=== PATIENT | female | born 1935 | race Caucasian/White ===

== ENCOUNTER → 2022-02-02 | Outpatient (REF) | payer MEDICARE, SELFPAY ==
[2022-02-02 11:05] LABS: Hematocrit 37.6 % (37-47); Hemoglobin 12.3 g/dL (12.0-15.0); Mean Corp Hgb Conc 32.7 g/dL (32-36); Mean Corpuscular Hgb 28.9 pg (27.0-32.0); Mean Corpuscular Volume 88.3 fL (81-99); Mean Platelet Vol. 9.8 fl (6.2-12.0); Platelet Count 324 K/mm3 (150-450); RBC Distribution Width CV 14.1 % (11.6-14.6); RBC Distribution Width SD 45.2 fl (35.1-43.9); Red Blood Count 4.26 M/mm3 (4.2-5.4); White Blood Count 7.9 K/mm3 (4.4-11.0)
[2022-02-02 11:18] LABS: Anion Gap 9 (5-15); BUN 15 mg/dL (7-18); BUN/Creat Ratio 20.4 RATIO (10-20); Calcium,Total 9.3 mg/dL (8.5-10.1); Chloride 104 mmol/L (98-107); Creatinine, Serum 0.74 mg/dL (0.55-1.02); EST Glomerular Filtration Rate 80 mL/min (>60); Est Glom Filt Rate - Afr Amer 96 mL/min (>60); Glucose 91 mg/dL (74-106); Potassium 3.7 mmol/L (3.5-5.1); Sodium Level 140 mmol/L (136-145)
== END | disposition home or self-care (01) ==
LOC: OLS.WHLTSB 07:40
PROVIDERS: Visit Provider Family Medicine
DX: I10 Essential (primary) hypertension (principal); E78.5 Hyperlipidemia, unspecified; F41.9 Anxiety disorder, unspecified; G47.09 Other insomnia; K21.9 Gastro-esophageal reflux disease without esophagitis; K59.00 Constipation, unspecified
CPT/HCPCS: 36415; 80048; 85027

== ENCOUNTER → 2022-03-14 | Outpatient (REF) | payer MEDICARE, SELFPAY ==
[2022-03-14 07:43] LABS: Absolute Lymphocyte Count 2.15 X10^3/uL (0.83-4.51); Absolute Neutrophil Count 10.5 X10^3/uL (2.0-7.7); Basophil# 0.02 X10^3/uL; Basophil% 0.1 % (0-1); Eosinophil# 0.02 X10^3/uL; Eosinophils% 0.1 % (0-5); Hematocrit 37.8 % (37-47); Hemoglobin 12.3 g/dL (12.0-15.0); Lymphocyte # 2.15 X10^3/ul (0.83-4.51); Lymphocyte % 15.4 % (19-41); Mean Corp Hgb Conc 32.5 g/dL (32-36); Mean Corpuscular Hgb 29.1 pg (27.0-32.0); Mean Corpuscular Volume 89.4 fL (81-99); Mean Platelet Vol. 9.6 fl (6.2-12.0); Monocyte# 1.22 X10^3/uL; Monocyte% 8.7 % (0-10); NRBC Flagged by Analyzer 0 % (0-5); Neutrophil # 10.48 X10^3/uL (2.7-7.7); Neutrophil % 75.1 % (47-70); Platelet Count 399 K/mm3 (150-450); RBC Distribution Width CV 14.7 % (11.6-14.6); RBC Distribution Width SD 47.5 fl (35.1-43.9); Red Blood Count 4.23 M/mm3 (4.2-5.4)
[2022-03-14 07:55] LABS: ALB/GLOB Ratio 0.7 RATIO (0.9-2.4); AST(SGOT) 45 U/L (15-37); Alanine Aminotransfer ALT/SGPT 49 U/L (13-56); Albumin, Serum 3.1 g/dL (3.2-5.0); Alkaline Phosphatase 117 U/L (45-117); Anion Gap 10 (5-15); BUN 24 mg/dL (7-18); BUN/Creat Ratio 38.2 RATIO (10-20); Calcium,Total 9.1 mg/dL (8.5-10.1); Chloride 103 mmol/L (98-107); Creatinine, Serum 0.63 mg/dL (0.55-1.02); EST Glomerular Filtration Rate 96 mL/min (>60); Est Glom Filt Rate - Afr Amer 116 mL/min (>60); Globulin 4.2 g/dL (2.2-4.2); Glucose 97 mg/dL (74-106); Potassium 2.9 mmol/L (3.5-5.1); Protein, Total 7.3 g/dL (6.4-8.2); Sodium Level 142 mmol/L (136-145)
== END | disposition home or self-care (01) ==
LOC: OLS.WHLTSB 05:00
PROVIDERS: Visit Provider Family Medicine
DX: M54.50 Low back pain, unspecified (principal)
CPT/HCPCS: 36415; 80053; 85025; 86140

== ENCOUNTER → 2022-03-15 | Outpatient (REF) | payer MEDICARE, SELFPAY ==
[2022-03-15 09:39] LABS: Anion Gap 4 (5-15); BUN 32 mg/dL (7-18); BUN/Creat Ratio 47.3 RATIO (10-20); Calcium,Total 9.2 mg/dL (8.5-10.1); Chloride 107 mmol/L (98-107); Creatinine, Serum 0.68 mg/dL (0.55-1.02); EST Glomerular Filtration Rate 88 mL/min (>60); Est Glom Filt Rate - Afr Amer 106 mL/min (>60); Glucose 99 mg/dL (74-106); Potassium 3.4 mmol/L (3.5-5.1); Sodium Level 141 mmol/L (136-145)
== END | disposition home or self-care (01) ==
LOC: OLS.WHLTSB 06:40
PROVIDERS: Visit Provider Family Medicine
DX: E87.6 Hypokalemia (principal); M54.50 Low back pain, unspecified; E78.5 Hyperlipidemia, unspecified; F41.9 Anxiety disorder, unspecified; G47.09 Other insomnia; Z86.16 Personal history of COVID-19; Z74.1 Need for assistance with personal care
CPT/HCPCS: 36415; 80048

== ENCOUNTER → 2022-03-22 | Outpatient (REF) | payer MEDICARE, OTHER, SELFPAY ==
[2022-03-22 09:44] LABS: Anion Gap 11 (5-15); BUN 12 mg/dL (7-18); BUN/Creat Ratio 16.1 RATIO (10-20); Calcium,Total 9.5 mg/dL (8.5-10.1); Chloride 104 mmol/L (98-107); Creatinine, Serum 0.75 mg/dL (0.55-1.02); EST Glomerular Filtration Rate 79 mL/min (>60); Est Glom Filt Rate - Afr Amer 95 mL/min (>60); Glucose 98 mg/dL (74-106); Potassium 3.6 mmol/L (3.5-5.1); Sodium Level 140 mmol/L (136-145)
== END | disposition home or self-care (01) ==
LOC: OLS.WHLTSB 07:20
PROVIDERS: Visit Provider Family Medicine
DX: M54.50 Low back pain, unspecified (principal); E87.6 Hypokalemia; F41.9 Anxiety disorder, unspecified; G47.09 Other insomnia; Z74.1 Need for assistance with personal care; Z86.16 Personal history of COVID-19
CPT/HCPCS: 36415; 80048

== ENCOUNTER 2022-04-06 14:30 | Inpatient (IN) | payer MEDICARE, OTHER, SELFPAY ==
[2022-04-06] VITALS (7 sets, daily range): BP systolic 109–134; BP diastolic 65–79; PULSE 87–98; RESP 14–18; TEMP 36.7–36.9; O2SAT 89–97; BMI 21.9; BMI 20.9
--- NOTE | 2022-04-06 14:38 | EKG12_ITS ---
Test Reason : Blood Pressure : / mmHG Vent. Rate : 085 BPM Atrial Rate : 085 BPM P-R Int : 150 ms QRS Dur : 072 ms QT Int : 366 ms P-R-T Axes : 040 032 060 degrees QTc Int : 435 ms Normal sinus rhythm Normal ECG Confirmed by RHINA FRANCIS, LAMINE ([id number]), editor book DEE MCDONALD ([id number]) on 04/07/2022 1:22:40 PM Referred By: Naren Confirmed By:LAMINE LANTIGUA MD
[2022-04-06] MEDS: Ondansetron 4 MG/2 ML Vial IV (14:45)
[2022-04-06] MEDS: Morphine 2 MG/ML Syringe IV (14:45)
[2022-04-06 14:51] LABS: Absolute Lymphocyte Count 1.04 X10^3/uL (0.83-4.51); Absolute Neutrophil Count 8.8 X10^3/uL (2.0-7.7); Basophil# 0.01 X10^3/uL; Basophil% 0.1 % (0-1); Eosinophils% 0.9 % (0-5); Hematocrit 31.6 % (37-47); Hemoglobin 10.3 g/dL (12.0-15.0); Lymphocyte # 1.04 X10^3/ul (0.83-4.51); Lymphocyte % 9.6 % (19-41); Mean Corp Hgb Conc 32.6 g/dL (32-36); Mean Corpuscular Hgb 29.6 pg (27.0-32.0); Mean Corpuscular Volume 90.8 fL (81-99); Mean Platelet Vol. 8.9 fl (6.2-12.0); Monocyte# 0.75 X10^3/uL; Monocyte% 6.9 % (0-10); NRBC Flagged by Analyzer 0 % (0-5); Neutrophil # 8.83 X10^3/uL (2.7-7.7); Neutrophil % 81.9 % (47-70); Platelet Count 361 K/mm3 (150-450); RBC Distribution Width CV 15.8 % (11.6-14.6); Red Blood Count 3.48 M/mm3 (4.2-5.4); White Blood Count 10.8 K/mm3 (4.4-11.0)
[2022-04-06 14:58] LABS: Prothrombin Time (Protime)PT. 13.1 SECONDS (11.7-14.9)
--- NOTE | 2022-04-06 14:58 | RAD_ITS ---
INDICATION: preop EXAMINATION/TECHNIQUE: X-RAY - XR Chest 1 View COMPARISON: None. FINDINGS: LINES/DEVICES: None. LUNGS: Peribronchial cuffing and bilateral perihilar prominence is visualized but no evidence of focal infiltrate or consolidation. Previous streaky opacity visualized overlying the left costophrenic angle suggestive of subsegmental atelectatic changes. No consolidation, edema or effusion. No pneumothorax. MEDIASTINUM AND CARDIOVASCULAR STRUCTURES: Cardiac silhouette not enlarged. BONES AND SOFT TISSUES: Unremarkable. RAD/Chest 1 View (Portable) IMPRESSION: No radiographic evidence of acute cardiopulmonary disease. Electronically Signed: Juvenal aRhman MD at 15:14 EDT Reading Location ID and State: [facility] / [place] Tel , Service support ,
[2022-04-06 15:09] LABS: ALB/GLOB Ratio 0.7 RATIO (0.9-2.4); AST(SGOT) 22 U/L (15-37); Alanine Aminotransfer ALT/SGPT 25 U/L (13-56); Albumin, Serum 2.9 g/dL (3.2-5.0); Alkaline Phosphatase 171 U/L (45-117); Anion Gap 7 (5-15); BUN 15 mg/dL (7-18); BUN/Creat Ratio 20.6 RATIO (10-20); Calcium,Total 8.4 mg/dL (8.5-10.1); Chloride 101 mmol/L (98-107); Creatinine, Serum 0.73 mg/dL (0.55-1.02); EST Glomerular Filtration Rate 81 mL/min (>60); Est Glom Filt Rate - Afr Amer 98 mL/min (>60); Estimated Creatinine Clearance 29.54 ml/min; Globulin 3.9 g/dL (2.2-4.2); Glucose 170 mg/dL (74-106); Potassium 3.3 mmol/L (3.5-5.1); Protein, Total 6.8 g/dL (6.4-8.2); Sodium Level 135 mmol/L (136-145)
--- NOTE | 2022-04-06 15:33 | RAD_ITS ---
INDICATION: trauma EXAMINATION/TECHNIQUE: X-RAY - RIGHT XR Hip Unilateral with Pelvis when performed; 2-3 Views 3 VIEWS COMPARISON: None. FINDINGS: Comminuted intertrochanteric fracture of the right femur is visualized, unremarkable alignment of the head of the right femur with the acetabulum. No evidence of dislocation. No evidence of other fractures is visualized. Degenerative bone changes are seen. RAD/HIP, UNI W/ Pelvis 2-3 Views IMPRESSION: Right femoral intertrochanteric fracture. Electronically Signed: Juvenal Rahman MD at 15:51 EDT ,
--- NOTE | 2022-04-06 15:45 | EDS_ITS ---
HPI History of Present Illness Chief Complaint: Lower Extremity Injury Narrative Narrative: Patient presents with right hip pain after mechanical fall at her snf. No other injury. She does remember the fall. She did not hit her head no neck pain, she arrives via EMS. [facility] Medical History Anxiety Constipation COVID-19 GERD without esophagitis Hyperlipemia Hypokalemia Insomnia Low back pain Muscle weakness (generalized) Primary hypertension Home Medications acetaminophen 500 mg capsule 500 mg PO TID 04/06/22 [History Last Taken Unknown] amlodipine 10 mg tablet 10 mg PO DAILY 04/06/22 [History Last Taken Unknown] aspirin 81 mg capsule 81 mg PO DAILY 04/06/22 [History Last Taken Unknown] atorvastatin 40 mg tablet 40 mg PO QHS 04/06/22 [History Last Taken Unknown] baclofen 5 mg tablet 5 mg PO PRN PRN Pain 04/06/22 [History Last Taken Unknown] calcium carbonate 200 mg calcium (500 mg) chewable tablet (Tums) 200 mg PO PRN PRN Acid Reflux 04/06/22 [History Last Taken Unknown] escitalopram oxalate 5 mg tablet 5 mg PO DAILY 04/06/22 [History Last Taken Unknown] lorazepam 1 mg tablet 1 mg PO DAILY 04/06/22 [History Last Taken Unknown] melatonin 3 mg capsule 3 mg PO QHS 04/06/22 [History Last Taken Unknown] metoprolol succinate 25 mg tablet,extended release 24 hr (Toprol XL) 25 mg PO DAILY 04/06/22 [History Last Taken Unknown] polyethylene glycol 3350 17 gram oral powder packet (Miralax) 17 g PO DAILY 04/06/22 [History Last Taken Unknown] potassium chloride 20 mEq tablet,extended release(part/cryst) 20 meq PO BID 04/06/22 [History Last Taken Unknown] tramadol 50 mg tablet 50 mg PO PRN PRN Pain 04/06/22 [History Last Taken Unknown] Allergy/AdvReac Type Severity Reaction Status Date / Time No Known Allergies Allergy Verified 04/06/22 14:35 Social History Smoking Status: Never smoker ROS ROS ED ROS Narrative Social: Noncontributory Medications: Reviewed Past medical history: Reviewed Review of systems General: Patient has no head injury or loss of consciousness HEENT: No facial injury Neck: No neck pain Cardiovascular: Patient denies any chest pain or palpitations Chest wall: No chest wall contusions Respiratory: There is no shortness of breath GI: There is no nausea vomiting diarrhea or abdominal pain, no abdominal wall contusions Skin: No lacerations or abrasions Neurological: Patient has no memory loss, confusion, or any focal weakness Psychiatric: No recent behavioral changes Back: No back pain, no problems with ambulation Musculoskeletal: Hip pain as in HPI All other systems are reviewed and normal EXAM Physical Exam Narrative Exam Narrative: Physical exam Vitals reviewed General: Does not appear in significant distress, no obvious injuries HEENT: No facial injury Head: No head injury Eyes: Extraocular movements intact Neck: No C-spine tenderness with full range of motion Heart: Regular rate normal pulses Chest wall: No chest wall pain Lungs clear lungs bilaterally with normal inspiration and expiration without tachypnea GI: Abdomen is soft and nontender there is no mass no guarding no abdominal wall contusion : Stable pelvis Musculoskeletal: Right hip is actually internally rotated and shortened there is quite a bit of pain with logrolling. There is no other extremity injury. Skin: No abrasions or laceration Neurological: Patient is alert and oriented with no focal deficits Const Vital Signs: 04/06/22 14:31 04/06/22 14:48 04/06/22 14:51 Temperature 98.0 F Temperature Source Temporal Pulse Rate 96 91 Respiratory Rate 16 14 Blood Pressure 134/66 H 130/72 H Blood Pressure Mean 88 91 Pulse Ox 95 89 95 Oxygen Delivery Method Room Air Room Air Nasal Cannula Oxygen Flow Rate (L/min) 2 [facility] Lab Data Labs: Laboratory Results - last 24 hr 04/06/22 04/06/22 04/06/22 14:40 14:40 14:40 WBC 10.8 RBC 3.48 L Hgb 10.3 L Hct 31.6 L MCV 90.8 MCH 29.6 MCHC 32.6 RDW Std Deviation 52.0 H RDW Coeff of Tiki 15.8 H Plt Count 361 MPV 8.9 Immature Gran % (Auto) 0.600 Neut % (Auto) 81.9 H Lymph % (Auto) 9.6 L [place] % (Auto) 6.9 Eos % (Auto) 0.9 Baso % (Auto) 0.1 Absolute Neuts (auto) 8.8 H Absolute Lymphs (auto) 1.04 Nucleated RBC % 0 PT 13.1 INR 1.0 Sodium 135 L Potassium 3.3 L Chloride 101 Carbon Dioxide 27.0 Anion Gap 7 BUN 15 Creatinine 0.73 Estim Creat Clear Calc 29.54 Est GFR (MDRD) Af Amer 98 Est GFR (MDRD) Non-Af 81 BUN/Creatinine Ratio 20.6 H Glucose 170 H Calcium 8.4 L Total Bilirubin 0.80 AST 22 ALT 25 Alkaline Phosphatase 171 H Total Protein 6.8 Albumin 2.9 L Globulin 3.9 Albumin/Globulin Ratio 0.7 L Radiography Diagnostic Testing: Clinical Impression(s) from Imaging Studies Chest X-Ray 04/06/22 14:58 IMPRESSION: No radiographic evidence of acute cardiopulmonary disease. Electronically Signed: Juvenal Rahman MD at 15:14 EDT Reading Location ID and State: [facility] / [place] Tel , Service support , Chest x-ray read by me 1 view is normal Right hip x-ray read by me shows an intratrochanteric fracture. Treatment and Re-Evaluation Narrative: Patient is given analgesia I talked to orthopedics. Preop work-up was initiated in the emergency department. Patient will be admitted to medicine Discharge Plan Triage Chief Complaint: Lower Extremity Injury ED Provider: Reilly Prabhakar Dx/Rx/DC Orders Clinical Impression: Fall, Closed hip fracture, Pre-op testing Prescriptions: No Action amlodipine 10 mg tablet 10 mg PO DAILY lorazepam 1 mg tablet 1 mg PO DAILY aspirin 81 mg Capsule 81 mg PO DAILY polyethylene glycol 3350 [Miralax] 17 gram Powder In Packet 17 g PO DAILY calcium carbonate [Tums] 200 mg calcium (500 mg) Tablet,Chewable 200 mg PO PRN PRN (Reason: Acid Reflux) metoprolol succinate [Toprol XL] 25 mg Tablet Extended Release 24 Hr 25 mg PO DAILY melatonin 3 mg Capsule 3 mg PO QHS atorvastatin 40 mg tablet 40 mg PO QHS acetaminophen 500 mg Capsule 500 mg PO TID tramadol 50 mg tablet 50 mg PO PRN PRN (Reason: Pain) potassium chloride 20 mEq tablet,ER particles/crystals 20 meq PO BID escitalopram oxalate 5 mg tablet 5 mg PO DAILY baclofen 5 mg tablet 5 mg PO PRN PRN (Reason: Pain) Disposition Disposition: Acute Care Hospital [facility]
--- NOTE | 2022-04-06 16:23 | PCM.HP.STD ---
HPI - General General Date of Admission: 04/06/22 Date of Service: 04/06/22 Chief Complaint: hip pain HPI Narrative GRAY MAYERS, is a 86 F who presents with hip pain. Patient was walking backwards with a walker and then fell landing on her right hip. Patient had pain. She did not hit her head nor lose consciousness. Presented to the emergency room. X-ray showed right femoral intertrochanteric fracture. Dr. Jeff Ruff was contacted from the emergency room and will be seeing the patient in consultation. [facility] Medical History Anxiety Constipation COVID-19 GERD without esophagitis Hyperlipemia Hypokalemia Insomnia Low back pain Muscle weakness (generalized) Primary hypertension Home Medications acetaminophen 500 mg tablet 1,000 mg PO TID PAIN 04/06/22 [History Last Taken 04/06/22] amlodipine 10 mg tablet 10 mg PO DAILY 04/06/22 [History Last Taken 04/06/22] aspirin 81 mg chewable tablet 81 mg PO DAILY HTN 04/06/22 [History Last Taken 04/06/22] atorvastatin 40 mg tablet 40 mg PO QHS 04/06/22 [History Last Taken 04/05/22] baclofen 5 mg tablet 5 mg PO TID PRN Back Pain 04/06/22 [History Last Taken Unknown] calcium carbonate 500 mg calcium (1,250 mg) chewable tablet 500 mg PO Q4H PRN Heartburn 04/06/22 [History Last Taken Unknown] escitalopram oxalate 5 mg tablet 5 mg PO DAILY 04/06/22 [History Last Taken 04/06/22] food supplemt, lactose-reduced (Ensure oral liquid) 120 ml PO BID SUPPLEMENT 04/06/22 [History Last Taken 04/06/22] lorazepam 1 mg tablet 1 mg PO QHS ANXIETY 04/06/22 [History Last Taken 04/05/22] melatonin 3 mg capsule 3 mg PO QHS 04/06/22 [History Last Taken 04/05/22] metoprolol succinate 25 mg tablet,extended release 24 hr (Toprol XL) 25 mg PO DAILY HTN 04/06/22 [History Last Taken 04/06/22] polyethylene glycol 3350 17 gram oral powder packet (Miralax) 17 g PO DAILY 04/06/22 [History Last Taken 04/06/22] potassium chloride 20 mEq tablet,extended release(part/cryst) 20 meq PO BID 04/06/22 [History Last Taken 04/06/22] tramadol 50 mg tablet 50 mg PO 4X/DAY PRN LOW BACK PAIN 04/06/22 [History Last Taken Unknown] Allergy/AdvReac Type Severity Reaction Status Date / Time No Known Allergies Allergy Verified 04/06/22 14:35 Family History (Updated 04/06/22 @ 16:[address] Jasson Barrientos DO) Mother Hip fracture Social History Smoking Status: Never smoker ROS ROS Narrative All review of systems were negative except as mentioned above in the history of present illness and the other review of systems. Vital Signs Vital Signs Vital Signs: 04/06/22 14:31 04/06/22 14:48 04/06/22 14:51 Temperature 36.7 C Temperature Source Temporal Pulse Rate 96 91 Respiratory Rate 16 14 Blood Pressure 134/66 H 130/72 H Blood Pressure Mean 88 91 Pulse Ox 95 89 95 Oxygen Delivery Method Room Air Room Air Nasal Cannula Oxygen Flow Rate (L/min) 2 04/06/22 16:11 Temperature 36.8 C Temperature Source Temporal Pulse Rate 97 Respiratory Rate 18 Blood Pressure 132/76 H Blood Pressure Mean 94 Pulse Ox 97 Oxygen Delivery Method Nasal Cannula Oxygen Flow Rate (L/min) 2 Weight Weight: 51 kg Body Mass Index (BMI) 21.9 Physical Exam Const alert and no apparent distress HEENT normocephalic, head/scalp atraumatic, hearing grossly normal bilaterally and moist oral mucous membranes Resp normal respiratory effort, no retractions, no use of accessory muscles and clear to auscultation bilaterally Cardio regular rate, regular rhythm, S1 normal heart sound and S2 normal heart sound GI normal to inspection, nondistended, normoactive bowel sounds, soft to palpation, non-tender and non-distended Extremity normal to inspection Results Lab / Micro Data Attestation: I reviewed the patient's lab results. Result Diagrams: 04/06/22 14:40 04/06/22 14:40 Labs: Laboratory Results - last 24 hr 04/06/22 14:40: WBC 10.8, RBC 3.48 L, Hgb 10.3 L, Hct 31.6 L, MCV 90.8, MCH 29.6, MCHC 32.6, RDW Std Deviation 52.0 H, RDW Coeff of Tiki 15.8 H, Plt Count 361, MPV 8.9, Immature Gran % (Auto) 0.600, Neut % (Auto) 81.9 H, Lymph % (Auto) 9.6 L, [place] % (Auto) 6.9, Eos % (Auto) 0.9, Baso % (Auto) 0.1, Absolute Neuts (auto) 8.8 H, Absolute Lymphs (auto) 1.04, Nucleated RBC % 0 04/06/22 14:40: PT 13.1, INR 1.0 04/06/22 14:40: Sodium 135 L, Potassium 3.3 L, Chloride 101, Carbon Dioxide 27.0, Anion Gap 7, BUN 15, Creatinine 0.73, Estim Creat Clear Calc 29.54, Est GFR (MDRD) Af Amer 98, Est GFR (MDRD) Non-Af 81, BUN/Creatinine Ratio 20.6 H, Glucose 170 H, Calcium 8.4 L, Total Bilirubin 0.80, AST 22, ALT 25, Alkaline Phosphatase 171 H, Total Protein 6.8, Albumin 2.9 L, Globulin 3.9, Albumin/Globulin Ratio 0.7 L EKG Initial EKG: Attestation: I personally reviewed and interpreted this EKG as follows: Prior EKG tracings: available for review EKG Rhythm Intrepretation: Sinus Rhythm Radiology Impression Chest X-Ray 04/06/22 14:58 IMPRESSION: No radiographic evidence of acute cardiopulmonary disease. Electronically Signed: Juvenal Rahman MD at 15:14 EDT Reading Location ID and State: [address] [place] [address] Tel , Service support , Hip/Pelvis X-Ray 04/06/22 15:33 IMPRESSION: Right femoral intertrochanteric fracture. Electronically Signed: Juvenal Rahman MD at 15:51 EDT Reading Location ID and State: [facility] / [place] Tel , Service support , Assessment & Plan Assessment/Plan (1) Closed hip fracture: PLAN: Due to mechanical fall Bedrest, check a 25-hydroxy vitamin D level, pain control And Q SIP performed and patient is higher than average risk for serious complication, any complication pneumonia, cardiac complication, UTI, VTE, readmission, and discharged to nursing or rehab facility. None of this is prohibitive from the patient proceeding with surgery. Patient does take aspirin at home but last dose was today. Patient is medically cleared to proceed with surgery. Dr. Jeff Ruff was contacted through the emergency room and he will be consulted. PLAN: Plan VTE prophylaxis: SCDs for now pending surgery. CODE STATUS: Per the patient's intermediate forms. Patient is DNR Comfort Care arrest. Charges/Coding Visit Charges Inpatient E&M: 65212 Init Hosp L2
[2022-04-06] MEDS: oxyCODONE 5 MG Tablet 10 MG PO ×2 (17:08→23:09)
[2022-04-06] MEDS: Potassium Chloride Oral Tablet 20 MEQ PO (17:08)
[2022-04-06] MEDS: Atorvastatin Calcium 40 MG Tablet PO (21:48)
[2022-04-06] MEDS: MELATONIN 3 MG TABLET PO (21:48)
[2022-04-06] MEDS: LORazepam 1 MG Tablet PO (21:49)
[2022-04-06] MEDS: Senna/Docusate Sodium 1 Tablet 2 TABLET PO (21:49)
[2022-04-06] MEDS: Acetaminophen 500 MG Tablet 1000 MG PO (23:10)
[2022-04-07] VITALS (14 sets, daily range): BP systolic 97–147; BP diastolic 62–87; PULSE 84–105; RESP 16–18; TEMP 36.4–37.7; O2SAT 93–99
[2022-04-07 07:08] LABS: Anion Gap 4 (5-15); BUN 15 mg/dL (7-18); Calcium,Total 8.5 mg/dL (8.5-10.1); Chloride 103 mmol/L (98-107); EST Glomerular Filtration Rate 101 mL/min (>60); Est Glom Filt Rate - Afr Amer 122 mL/min (>60); Estimated Creatinine Clearance 29.54 ml/min; Glucose 113 mg/dL (74-106); Potassium 3.9 mmol/L (3.5-5.1); Sodium Level 136 mmol/L (136-145)
[2022-04-07] MEDS: Acetaminophen 500 MG Tablet 1000 MG PO ×3 (07:16→21:29)
--- NOTE | 2022-04-07 07:44 | PCM.PN.HOSP ---
Subjective Subjective Complains of right ankle pain which she has had off and on for years. No additional events overnight. Objective Data Objective Data Vital Signs: Vital Signs Temp Pulse Resp BP Pulse Ox O2 Del Method O2 Flow Rate 36.8 C 97 18 124/74 H 95 Nasal Cannula 2 04/07/22 06:38 04/07/22 06:38 04/07/22 06:38 04/07/22 06:38 04/07/22 06:38 04/07/22 06:38 04/07/22 06:38 Oxygen Flow Rate (L/min) 2 Oxygen Delivery Method Nasal Cannula Weight: 52.5 kg Body Mass Index (BMI) 20.9 Intake & Output: Intake and Output for Last 24 Hours 04/05/22 04/06/22 04/07/22 23:59 23:59 23:59 Intake Total 200 / 260 60 / 60 Output Total 50 / 50 100 / 100 Balance 150 / 210 -40 / -40 Lab / Micro Data Result Diagrams: 04/06/22 14:40 04/07/22 06:26 Labs: Laboratory Results - last 24 hr 04/06/22 14:35: Blood Type O NEGATIVE, Antibody Screen NEGATIVE 04/06/22 14:40: WBC 10.8, RBC 3.48 L, Hgb 10.3 L, Hct 31.6 L, MCV 90.8, MCH 29.6, MCHC 32.6, RDW Std Deviation 52.0 H, RDW Coeff of Tiki 15.8 H, Plt Count 361, MPV 8.9, Immature Gran % (Auto) 0.600, Neut % (Auto) 81.9 H, Lymph % (Auto) 9.6 L, [place] % (Auto) 6.9, Eos % (Auto) 0.9, Baso % (Auto) 0.1, Absolute Neuts (auto) 8.8 H, Absolute Lymphs (auto) 1.04, Nucleated RBC % 0 04/06/22 14:40: PT 13.1, INR 1.0 04/06/22 14:40: Sodium 135 L, Potassium 3.3 L, Chloride 101, Carbon Dioxide 27.0, Anion Gap 7, BUN 15, Creatinine 0.73, Estim Creat Clear Calc 29.54, Est GFR (MDRD) Af Amer 98, Est GFR (MDRD) Non-Af 81, BUN/Creatinine Ratio 20.6 H, Glucose 170 H, Calcium 8.4 L, Total Bilirubin 0.80, AST 22, ALT 25, Alkaline Phosphatase 171 H, Total Protein 6.8, Albumin 2.9 L, Globulin 3.9, Albumin/Globulin Ratio 0.7 L 04/06/22 14:40: Vitamin D 25-Hydroxy 31.0 04/07/22 06:26: Sodium 136, Potassium 3.9, Chloride 103, Carbon Dioxide 29.0, Anion Gap 4 L, BUN 15, Creatinine 0.60, Estim Creat Clear Calc 29.54, Est GFR (MDRD) Af Amer 122, Est GFR (MDRD) Non-Af 101, BUN/Creatinine Ratio 25.0 H, Glucose 113 H, Calcium 8.5 Radiography Diagnostic Testing: Radiology Impression Chest X-Ray 04/06/22 14:58 IMPRESSION: No radiographic evidence of acute cardiopulmonary disease. Electronically Signed: Juvenal Rahman MD at 15:14 EDT Reading Location ID and State: [address] [place] [address] Tel , Service support , Hip/Pelvis X-Ray 04/06/22 15:33 IMPRESSION: Right femoral intertrochanteric fracture. Electronically Signed: Juvenal Rahman MD at 15:51 EDT Reading Location ID and State: [facility] / [place] Tel , Service support , Physical Exam Const alert and no apparent distress Cardio regular rate, regular rhythm, S1 normal heart sound and S2 normal heart sound GI normal to inspection, nondistended, normoactive bowel sounds, soft to palpation, non-tender and non-distended Psych affect normal Assessment & Plan Assessment/Plan (1) Closed hip fracture: QUALIFIERS: Encounter type: initial encounter Laterality: left Qualified Code(s): S72.002A - Fracture of unspecified part of neck of left femur, initial encounter for closed fracture PLAN: Due to mechanical fall Bedrest, pain control NQSIP performed and patient is higher than average risk for serious complication, any complication pneumonia, cardiac complication, UTI, VTE, readmission, and discharged to nursing or rehab facility. None of this is prohibitive from the patient proceeding with surgery. Patient does take aspirin at home but last dose was today. Patient is medically cleared to proceed with surgery. (2) Vitamin D deficiency: PLAN: 25-hydroxy vitamin D level is 31. Goal is 50. Start ergocalciferol 50,000 units weekly for 8 weeks PLAN: Plan VTE prophylaxis: SCDs for now pending surgery. CODE STATUS: Per the patient's snf forms. Patient is DNR Comfort Care arrest. Charges/Coding Visit Charges Inpatient E&M: 19237 Subs Hosp L2
[2022-04-07] MEDS: amLODIPine 10 MG Tablet PO (08:14)
[2022-04-07] MEDS: Escitalopram Oxalate 10 MG Tablet 5 MG PO (08:14)
[2022-04-07] MEDS: Metoprolol(XL)Succ 25 MG Tablet PO (08:14)
[2022-04-07] MEDS: Potassium Chloride Oral Tablet 20 MEQ PO (08:15)
[2022-04-07] MEDS: Senna/Docusate Sodium 1 Tablet 2 TABLET PO ×2 (08:16→21:29)
[2022-04-07] MEDS: Ensure Clear 120 ML Liquid PO ×2 (08:21→20:26)
[2022-04-07] MEDS: Polyethylene Glycol 3350 17 GM PACKET PO (08:22)
--- NOTE | 2022-04-07 10:00 | CASEMGMT ---
Social Work Note DARYA reviewed chart. Pt is listed as being from [facility]. SW placed a call to Rocío at [facility]. Pt is from [facility] and they want pt to return skilled. SW in to speak with pt. SW introduced self and role at [facility]. SW spoke with pt how she likely will need SNF at discharge. Pt states she is agreeable to returning to [facility] skilled at discharged. Plan: [facility] skilled Jennifer Doll [employer] REPA[employer] TECHNICIAN, [employer] ASSEM[employer]ER
[2022-04-07] MEDS: oxyCODONE 5 MG Tablet 10 MG PO (13:20)
--- NOTE | 2022-04-07 13:55 | CON.PCM.OR_ITS ---
HPI Consult Data Date of Consult: 04/07/22 HPI Narrative HPI Narrative: GRAY MAYERS, is a 86 F who presents to [facility] emergency department after a fall on her right side, mechanical in nature, after she lost track of her Rollator and landed on her right side. Patient lives in an assisted living apartment. She complains of left-sided sciatica that has been around for 3 months or so limiting function of her left leg. She states sh e has been doing therapy in her apartment for the last several months. She denies any antecedent right hip or groin pain. Denies any other associated injury. Denies any syncopal, presyncopal symptoms. Denies any nausea or vomiting, chest pain or shortness of breath. Denies any head injury, loss of consciousness, or neck injury. Denies any numbness or tingling. [facility] Medical History Anxiety Constipation COVID-19 GERD without esophagitis Hyperlipemia Hypokalemia Insomnia Low back pain Muscle weakness (generalized) Primary hypertension Home Medications acetaminophen 500 mg tablet 1,000 mg PO TID PAIN 04/06/22 [History Last Taken ] amlodipine 10 mg tablet 10 mg PO DAILY 04/06/22 [History Last Taken 04/06/22] aspirin 81 mg chewable tablet 81 mg PO DAILY HTN 04/06/22 [History Last Taken 04/06/22] atorvastatin 40 mg tablet 40 mg PO QHS 04/06/22 [History Last Taken 04/05/22] baclofen 5 mg tablet 5 mg PO TID PRN Back Pain 04/06/22 [History Last Taken Unknown] calcium carbonate 500 mg calcium (1,250 mg) chewable tablet 500 mg PO Q4H PRN Heartburn 04/06/22 [History Last Taken Unknown] escitalopram oxalate 5 mg tablet 5 mg PO DAILY 04/06/22 [History Last Taken 04/06/22] food supplemt, lactose-reduced (Ensure oral liquid) 120 ml PO BID SUPPLEMENT 04/06/22 [History Last Taken 04/06/22] lorazepam 1 mg tablet 1 mg PO QHS ANXIETY 04/06/22 [History Last Taken 04/05/22] melatonin 3 mg capsule 3 mg PO QHS 04/06/22 [History Last Taken 04/05/22] metoprolol succinate 25 mg tablet,extended release 24 hr (Toprol XL) 25 mg PO DA HARRY HTN 04/06/22 [History Last Taken 04/06/22] polyethylene glycol 3350 17 gram oral powder packet (Miralax) 17 g PO DAILY 04/06/22 [History Last Taken 04/06/22] potassium chloride 20 mEq tablet,extended release(part/cryst) 20 meq PO BID 04/06/22 [History Last Taken 04/06/22] tramadol 50 mg tablet 50 mg PO 4X/DAY PRN LOW BACK PAIN 04/06/22 [History Last Taken Unknown] Allergy/AdvReac Type Severity Reaction Status Date / Time No Known Allergies Allergy Verified 04/06/22 14:35 Family History (Updated 04/06/22 @ 16:[address] Jasson Barrientos DO) Mother Hip fracture Social History Smoking Status: Never smoker Vital Signs Vital Signs Vital Signs: 04/06/22 14:31 04/06/22 14:48 04/06/22 14:51 Temperature 98.0 F Temperature Source Temporal Pulse Rate 96 91 Pulse Strength Respiratory Rate 16 14 Respiratory Effort Respiratory Depth Respiratory Pattern Blood Pressure 134/66 H 130/72 H Blood Pressure Mean 88 91 Blood Pressure Source Blood Pressure Position Blood Pressure Location Pulse Ox 95 89 95 Oxygen Delivery Method Room Air Room Air Nasal Cannula Oxygen Flow Rate (L/min) 2 04/06/22 16:11 04/06/22 16:30 04/06/22 17:21 Temperature 98.2 F 98.4 F Temperature Source Temporal Temporal Pulse Rate 97 87 Pulse Strength Respiratory Rate 18 16 Respiratory Effort Normal Non-Labored Respiratory Depth Normal Respiratory Pattern Normal Blood Pressure 132/76 H 123/79 H Blood Pressure Mean 94 93 Blood Pressure Source Monitor Blood Pressure Position Semi-Fowlers Blood Pressure Location Right Arm Pulse Ox 97 93 Oxygen Delivery Method Nasal Cannula Room Air Room Air Oxygen Flow Rate (L/min) 2 04/06/22 17:24 04/06/22 17:29 04/06/22 19:43 Temperature Temperature Source Pulse Rate Pulse Strength Normal (2+) Respiratory Rate Respiratory Effort Normal Normal Respiratory Depth Normal Normal Respiratory Pattern Normal Normal Blood Pressure Blood Pressure Mean Blood Pressure Source Blood Pressure Position Blood Pressure Location Pulse Ox Oxygen Delivery Method Room Air Room Air Oxygen Flow Rate (L/min) 04/06/22 21:45 04/06/22 23:07 04/07/22 04:06 Temperature 98.0 F 98.1 F 97.7 F L Temperature Source Oral Oral Oral Pulse Rate 96 98 101 H Pulse Strength Respiratory Rate 18 18 18 Respiratory Effort Respiratory Depth Respiratory Pattern Blood Pressure 109/65 119/75 132/82 H Blood Pressure Mean 79 89 98 Blood Pressure Source Monitor Monitor Monitor Blood Pressure Position Supine Supine Supine Blood Pressure Location Left Arm Left Arm Left Arm Pulse Ox 90 97 99 Oxygen Delivery Method Nasal Cannula Nasal Cannula Nasal Cannula Oxygen Flow Rate (L/min) 2 2 2 04/07/22 04:08 04/07/22 06:38 04/07/22 08:14 Temperature 98.2 F Temperature Source Oral Pulse Rate 97 84 Pulse Strength Respiratory Rate 18 Respiratory Effort Normal Respiratory Depth Normal Respiratory Pattern Normal Blood Pressure 124/74 H Blood Pressure Mean 90 Blood Pressure Source Monitor Blood Pressure Position Supine Blood Pressure Location Left Arm Pulse Ox 95 Oxygen Delivery Method Nasal Cannula Nasal Cannula Oxygen Flow Rate (L/min) 2 2 04/07/22 09:16 04/07/22 09:16 04/07/22 08:11 Temperature Temperature Source Pulse Rate Pulse Strength Normal (2+) Respiratory Rate Respiratory Effort Respiratory Depth Respiratory Pattern Blood Pressure Blood Pressure Mean Blood Pressure Source Blood Pressure Position Blood Pressure Location Pulse Ox 95 Oxygen Delivery Method Room Air Nasal Cannula Oxygen Flow Rate (L/min) 2 Weight Weight: 115 lb 11.883 oz Body Mass Index (BMI) 20.9 Physical Exam Narrative General -A&Ox3, NAD, appears stated age. Vital signs stable, afebrile. Respiratory -normal work of breathing, no intercostal retractions. CV -pulses regular, brisk capillary refill ?4 limbs. Abdomen-soft, nontender, nondistended. No guarding, rigidity, rebound tenderness. Musculoskeletal/neurologic -full range of motion nontender throughout bilateral upper extremities, left lower extremity with full sensation and strength in all dermatomes and myotomes. No midline cervical tenderness. Right lower extremity-no obvious deformity. Pain with logroll of the right lower extremity. Nontender throughout the right knee femoral shaft, tibial shaft and right foot/ankle. Brisk capillary refill. Sensation intact light touch L3-S1 dermatomes. DF, PF, EHL intact. DP, PT 2+. Pelvis is stable, nontender. Skin is intact without lacerations, abrasions. No ecchymosis noted. Lab / Micro Data Result Diagrams: 04/06/22 14:40 04/07/22 06:26 Labs: Laboratory Results - last 24 hr 04/06/22 14:35: Blood Type O NEGATIVE, Antibody Screen NEGATIVE 04/06/22 14:40: WBC 10.8, RBC 3.48 L, Hgb 10.3 L, Hct 31.6 L, MCV 90.8, MCH 29.6, MCHC 32.6, RDW Std Deviation 52.0 H, RDW Coeff of Tiki 15.8 H, Plt Count 361, MPV 8.9, Immature Gran % (Auto) 0.600, Neut % (Auto) 81.9 H, Lymph % (Auto) 9.6 L, [place] % (Auto) 6.9, Eos % (Auto) 0.9, Baso % (Auto) 0.1, Absolute Neuts (auto) 8.8 H, Absolute Lymphs (auto) 1.04, Nucleated RBC % 0 04/06/22 14:40: PT 13.1, INR 1.0 04/06/22 14:40: Sodium 135 L, Potassium 3.3 L, Chloride 101, Carbon Dioxide 27.0, Anion Gap 7, BUN 15, Creatinine 0.73, Estim Creat Clear Calc 29.54, Est GFR (MDRD) Af Amer 98, Est GFR (MDRD) Non-Af 81, BUN/Creatinine Ratio 20.6 H, Glucose 170 H, Calcium 8.4 L, Total Bilirubin 0.80, AST 22, ALT 25, Alkaline Phosphatase 171 H, Total Protein 6.8, Albumin 2.9 L, Globulin 3.9, Albumin/Globulin Ratio 0.7 L 04/06/22 14:40: Vitamin D 25-Hydroxy 31.0 04/07/22 06:26: Sodium 136, Potassium 3.9, Chloride 103, Carbon Dioxide 29.0, Anion Gap 4 L, BUN 15, Creatinine 0.60, Estim Creat Clear Calc 29.54, Est GFR (MDRD) Af Amer 122, Est GFR (MDRD) Non-Af 101, BUN/Creatinine Ratio 25.0 H, Glucose 113 H, Calcium 8.5 Radiology Impression Chest X-Ray 04/06/22 14:58 IMPRESSION: No radiographic evidence of acute cardiopulmonary disease. Electronically Signed: Juvenal Rahman MD at 15:14 EDT Reading Location ID and State: [facility] / [place] Tel , Service support , Hip/Pelvis X-Ray 04/06/22 15:33 IMPRESSION: Right femoral intertrochanteric fracture. Electronically Signed: Juvenal Rahman MD at 15:51 EDT Reading Location ID and State: [facility] / [place] Tel , Service support , Assessment & Plan Assessment/Plan (1) Closed hip fracture: QUALIFIERS: Encounter type: initial encounter Laterality: left Qualified Code(s): S72.002A - Fracture of unspecified part of neck of left femur, initial encounter for closed fracture PLAN: Patient sustained a right intertrochanteric proximal femur fracture. -Closed, neurovascularly intact -Isolated injury -Recommending surgical intervention in the form of right femur cephalomedullary nailing -I discussed the procedure-its risks, benefits and alternative. Risks include but are not limited to bleeding, infection, loss of life or limb, risk of anesthesia, persistent pain or disability, need for additional surgery, nonunion, malunion, failure of orthopedic hardware, neurovascular injury, DVT or PE. Patient expressed understanding these risks and wished proceed with surgery. -Maintenance IV fluids, clear liquid diet after midnight n.p.o. at 2 hours prior to surgery -Type and screen -2 g Ancef on-call to the OR -Bedrest, heel protectors -Plan to proceed with surgery later today when OR becomes available Thank you for this consultation.
--- NOTE | 2022-04-07 14:05 | CASEMGMT ---
MARINA DICK NOTE: Updated clinicals faxed to [place] at this time. Cody COHN RN CM
[2022-04-07 14:09] LABS: Absolute Neutrophil Count 6.3 X10^3/uL (2.0-7.7); Basophil# 0.01 X10^3/uL; Basophil% 0.1 % (0-1); Eosinophil# 0.05 X10^3/uL; Eosinophils% 0.6 % (0-5); Hemoglobin 9.3 g/dL (12.0-15.0); Lymphocyte % 15.5 % (19-41); Mean Corp Hgb Conc 32.1 g/dL (32-36); Mean Corpuscular Hgb 29.5 pg (27.0-32.0); Mean Corpuscular Volume 92.1 fL (81-99); Mean Platelet Vol. 9.7 fl (6.2-12.0); Monocyte# 0.66 X10^3/uL; Monocyte% 7.9 % (0-10); NRBC Flagged by Analyzer 0 % (0-5); Neutrophil # 6.33 X10^3/uL (2.7-7.7); Neutrophil % 75.4 % (47-70); Platelet Count 324 K/mm3 (150-450); RBC Distribution Width CV 15.9 % (11.6-14.6); RBC Distribution Width SD 52.5 fl (35.1-43.9); Red Blood Count 3.15 M/mm3 (4.2-5.4); White Blood Count 8.4 K/mm3 (4.4-11.0)
[2022-04-07] MEDS: Cefazolin 2 GM in 0.9% Normal Saline 100 ML IV (15:08)
--- NOTE | 2022-04-07 17:10 | RAD_ITS ---
STUDY: INTRAOPERATIVE FLUOROSCOPY TECHNIQUE: The examination was performed with referring physician in attendance. Under fluoroscopic observation, fluoroscopic images were obtained. Radiologist was not present for the study. Radiologist did not perform the procedure. This dictation is for documentation of the radiation dosage only. There is no interpretation of the images. TOTAL NUMBER OF IMAGES: 1 COMPARISON: None RADIATION DOSE: 10.2 mGy FLUOROSCOPY TIME: 75 seconds REASON FOR EXAM: HIP NAILING Female, 86 years old. FINDINGS: IM nail visualized. Femoral intramedullary wendy transfixes the femoral fracture.. RAD/Hip 1 view with Pelvis IMPRESSION: Fluoroscopic assistance images were obtained. Dictation for documentation purposes only. Electronically Signed: Bunny Penny MD at 18:19 EDT ,
--- NOTE | 2022-04-07 18:15 | PCM.OPRPT ---
Report of Operation Date of Procedure: 04/07/22 Description of Surgical Findings:: Preoperative diagnosis: Right intertrochanteric proximal femur fracture Postoperative diagnosis: Right intertrochanteric proximal femur fracture Procedure: Treatment of intertrochanteric hip fracture with intramedullary nail right femur Surgeon: Jordin Crowley DO Anesthesia: General endotracheal Anesthesiologist: Dr. Johnson Complications: None Drains: None Estimated blood loss: 200 cc Urinary output: None recorded IV fluids: 500 cc crystalloid Specimens: None Surgical implants: [place] Gamma3 Cephalomedullary Nail 125 degree 11 mm x 18 centimeter right, 10.5 mm x 90 mm lag screw, Interlocking screw size 5 mm x 35 mm Surgical indications: This is a 86 F who presents presented to [facility] emergency department after a mechanical fall from standing height after she lost track of her Rollator and landed on her right side. She was brought to [facility] emergency department where x-rays revealed a right comminuted intertrochanteric proximal femur fracture. She was ultimately admitted under the service of the hospitalist. I saw the patient in consultation. I recommended cephalomedullary nail fixation of her right intertrochanteric proximal femur fracture. The risks, benefits, alternatives to procedure reviewed with the patient. The risks of the surgery included bleeding, infection, loss of life or limb, malunion, nonunion, damage to vital structures, neurovascular injury, failure of orthopedic hardware, need for additional surgery, persistent pain or disability, risk of anesthesia. The patient expressed understanding of these risks and agreed to proceed with surgery. Blood consent was also obtained. Description of procedure: Patient was seen in preoperative holding area. She was identified by name, medical record number, date of . The operative extremity was marked with a surgical marker. We confirmed informed consent with the patient and questions were answered to her satisfaction. Patient was brought to the operative suite, and general anesthesia was induced on her hospital bed. Endotracheal tube was secured. After adequate anesthesia, patient was transferred to a fracture table with all bony prominences being well-padded. A perineal post was placed to secure the patient on the table. We then applied a ski boot which was well-padded to the operative extremity. The well leg was dropped into extension and secured to the axial post of the fracture table with a pillow and [place]. The right arm was brought across patient's chest with a blanket on her chest. We then performed a closed reduction maneuver with external rotation, traction, internal rotation and adduction. Fluoroscopic images were obtained. Fracture appeared to be acceptably reduced following closed reduction. We then prepped and draped the right lower extremity in normal, sterile orthopedic fashion. A timeout was performed with all parties in attendance in agreement with the side, site, and operation be performed. 2 g Ancef was administered prior to incision. No concerns were voiced and we elected to proceed. I first used fluoroscopy to gilberto the level of the fracture and planned incision for insertion of the cephalomedullary nail device. In line with the long axis of the femur, 4 fingerbreadths proximal to the tip of the greater trochanter, a full-thickness skin incision was planned.. Skin was sharply incised with 10 blade scalpel, carried into the subcutaneous tissues. The IT band was encountered and split and planned trajectory of the nail placement. The greater trochanter was then able to be palpated digitally. I then placed a threaded guidewire just medial to the tip of the greater trochanter and in the anterior third of it on the lateral. Opening reamer was then placed over top of the guidewire after placement was confirmed on C arm Reduction was again confirmed. We selected her nail to be 18 cm x 11 mm diameter. Reamers were removed. Nail was assembled on the back table. Nail plate was placed through the pilot boat operator hole and impacted to an appropriate depth. Rotation was confirmed on the lateral. Drill sleeve was placed through the targeting guide. We drilled the pin for the lag screw at an appropriate position and depth, tip to apex distance less than 25 mm on AP and lateral combined. Depth gauge was used to measure the length of the screw, 90 mm. We then used the cannulated drill to drill to an appropriate depth. Drill was removed, drill pin left in place. Lag screw was placed over top of the drill pin and tightened to an appropriate depth. Setscrew was then placed and tightened, and then turned back a quarter turn to allow the lag screw to slide. I then drilled for a dynamic interlocking screw in the distal portion of the screw utilizing the outrigger. Skin was incised full-thickness down the level of the IT band which was also split in line with the skin incision. I drilled bicortically through the distal interlocking slot of the nail. I measured for a 35 mm interlocking screw which was placed by hand with excellent purchase. Instruments were removed as well as the outrigger for the nail. Final fluoroscopic images were obtained at the hip. Final fluoroscopic images were obtained. We irrigated the wounds copiously with normal saline solution. Hemostasis was excellent at this point. We then closed the deeper layers, IT band with 0 Vicryl. Intradermal buried stitches of 2-0 Vicryl were utilized and skin finally reapproximated with skin obdulia. Sterile compression dressing of Xeroform, 4 x 4's, and Tegaderm was applied. Patient tolerated procedure well without complication. She was transferred back to her hospital bed and subsequently to PACU in stable condition. Intraoperative medications: 2 g Ancef IV Post Operative Plan: Weightbearing: Weightbearing as tolerated right lower extremity with a walker Antibiotics: Ancef 2 g x 3 doses postoperatively, 1 dose given preoperatively DVT Prophylaxis: Aspirin 81 mg twice daily to start tomorrow Cummings: None Dressing: Dry sterile dressing changes daily and as needed for saturation X-Rays: 2 weeks postop in the office Follow-up: 2 weeks post-operatively with me in the office
[2022-04-07] MEDS: oxyCODONE 5 MG Tablet PO (20:26)
--- NOTE | 2022-04-07 20:32 | NURSING ---
pt stood at side of bed and took a couple of steps w walker
[2022-04-07] MEDS: Ondansetron 4 MG/2 ML Vial IV (20:35)
[2022-04-07] MEDS: LORazepam 1 MG Tablet PO (21:29)
[2022-04-07] MEDS: MELATONIN 3 MG TABLET PO (21:29)
[2022-04-07] MEDS: Atorvastatin Calcium 40 MG Tablet PO (21:29)
[2022-04-08] VITALS (9 sets, daily range): BP systolic 103–119; BP diastolic 59–73; PULSE 82–100; RESP 18; TEMP 36.6–36.9; O2SAT 94–98
[2022-04-08] MEDS: Acetaminophen 500 MG Tablet 1000 MG PO ×2 (05:24→13:37)
[2022-04-08 06:33] LABS: Hematocrit 24.5 % (37-47); Hemoglobin 7.7 g/dL (12.0-15.0); Mean Corp Hgb Conc 31.4 g/dL (32-36); Mean Corpuscular Hgb 29.3 pg (27.0-32.0); Mean Corpuscular Volume 93.2 fL (81-99); Mean Platelet Vol. 9.1 fl (6.2-12.0); Platelet Count 289 K/mm3 (150-450); RBC Distribution Width CV 15.9 % (11.6-14.6); RBC Distribution Width SD 54.4 fl (35.1-43.9); Red Blood Count 2.63 M/mm3 (4.2-5.4); White Blood Count 8.1 K/mm3 (4.4-11.0)
[2022-04-08 07:05] LABS: Anion Gap 4 (5-15); BUN 15 mg/dL (7-18); Chloride 103 mmol/L (98-107); Creatinine, Serum 0.58 mg/dL (0.55-1.02); EST Glomerular Filtration Rate 105 mL/min (>60); Est Glom Filt Rate - Afr Amer 127 mL/min (>60); Estimated Creatinine Clearance 29.54 ml/min; Glucose 122 mg/dL (74-106); Potassium 3.9 mmol/L (3.5-5.1); Sodium Level 136 mmol/L (136-145)
--- NOTE | 2022-04-08 07:44 | PCM.PN.ORT ---
Subjective Subjective Patient seen and examined. Reports some soreness in her right hip but otherwise denies any symptoms. Tolerating oral intake without nausea or vomiting. Denies fevers, chills, chest pain, shortness of breath. Objective Data Objective Data Vital Signs: Vital Signs Temp Pulse Resp BP Pulse Ox O2 Del Method O2 Flow Rate 98.1 F 100 18 119/62 96 Nasal Cannula 4 04/08/22 05:30 04/08/22 05:30 04/08/22 05:30 04/08/22 05:30 04/08/22 06:54 04/08/22 06:54 04/08/22 06:54 Oxygen Flow Rate (L/min) 4 Oxygen Delivery Method Nasal Cannula Weight: 115 lb 11.883 oz Body Mass Index (BMI) 20.9 Intake & Output: Intake and Output for Last 24 Hours 04/06/22 04/07/22 04/08/22 23:59 23:59 23:59 Intake Total 200 / 260 515 / 515 165 / 165 Output Total 50 / 50 300 / 300 100 / 100 Balance 150 / 210 215 / 215 65 / 65 Lab / Micro Data Result Diagrams: 04/08/22 06:00 04/08/22 06:00 Labs: Laboratory Results - last 24 hr 04/07/22 06:26: WBC 8.4, RBC 3.15 L, Hgb 9.3 L, Hct 29.0 L, MCV 92.1, MCH 29.5, MCHC 32.1, RDW Std Deviation 52.5 H, RDW Coeff of Tiki 15.9 H, Plt Count 324, MPV 9.7, Immature Gran % (Auto) 0.500, Neut % (Auto) 75.4 H, Lymph % (Auto) 15.5 L, [place] % (Auto) 7.9, Eos % (Auto) 0.6, Baso % (Auto) 0.1, Absolute Neuts (auto) 6.3, Absolute Lymphs (auto) 1.30, Nucleated RBC % 0 04/08/22 06:00: WBC 8.1, RBC 2.63 L, Hgb 7.7 L, Hct 24.5 L, MCV 93.2, MCH 29.3, MCHC 31.4 L, RDW Std Deviation 54.4 H, RDW Coeff of Tiki 15.9 H, Plt Count 289, MPV 9.1 08/05/22 06:00: Sodium 136, Potassium 3.9, Chloride 103, Carbon Dioxide 29.0, Anion Gap 4 L, BUN 15, Creatinine 0.58, Estim Creat Clear Calc 29.54, Est GFR (MDRD) Af Amer 127, Est GFR (MDRD) Non-Af 105, BUN/Creatinine Ratio 26.0 H, Glucose 122 H, Calcium 8.0 L Radiography Diagnostic Testing: Radiology Impression Hip/Pelvis X-Ray 04/07/22 17:10 IMPRESSION: Fluoroscopic assistance images were obtained. Dictation for documentation purposes only. Electronically Signed: Bunny Penny MD at 18:19 EDT , Physical Exam Narrative General - A&Ox3, NAD. VSS/AF Right lower extremity -incisional dressing shows minimal shadowing, otherwise clean dry and intact. SILT Sural, Saphenous, SPN, DPN, Tibial N. distributions. DP, PT 2+. BCR. DF, PF, EHL 5/5. No calf TTP. Assessment & Plan Assessment/Plan (1) Closed hip fracture: QUALIFIERS: Encounter type: initial encounter Laterality: left Qualified Code(s): S72.002A - Fracture of unspecified part of neck of left femur, initial encounter for closed fracture PLAN: POD#1 s/p right femur CMN -Expected drop in hemoglobin to 7.7 from 9.3 yesterday consistent with acute blood loss anemia in the setting of chronic anemia. Patient appears asymptomatic and hemodynamically stable. - Pain control - Medicine following for medical management - PT/OT - WBAT right lower extremity - DVT PPX -early mobilization, SCDs, RYLEE yanez, aspirin 81 mg twice daily - Case management - D/C planning
--- NOTE | 2022-04-08 07:54 | PCM.PN.HOSP ---
Subjective Subjective Some hip pain but otherwise feeling well. Objective Data Objective Data Vital Signs: Vital Signs Temp Pulse Resp BP Pulse Ox O2 Del Method O2 Flow Rate 36.7 C 100 18 119/62 96 Nasal Cannula 4 04/08/22 05:30 04/08/22 05:30 04/08/22 05:30 04/08/22 05:30 04/08/22 06:54 04/08/22 06:54 04/08/22 06:54 Oxygen Flow Rate (L/min) 4 Oxygen Delivery Method Nasal Cannula Weight: 52.5 kg Body Mass Index (BMI) 20.9 Intake & Output: Intake and Output for Last 24 Hours 04/06/22 04/07/22 04/08/22 23:59 23:59 23:59 Intake Total 200 / 260 515 / 515 165 / 165 Output Total 50 / 50 300 / 300 100 / 100 Balance 150 / 210 215 / 215 65 / 65 Lab / Micro Data Result Diagrams: 04/08/22 06:00 04/08/22 06:00 Labs: Laboratory Results - last 24 hr 04/07/22 06:26: WBC 8.4, RBC 3.15 L, Hgb 9.3 L, Hct 29.0 L, MCV 92.1, MCH 29.5, MCHC 32.1, RDW Std Deviation 52.5 H, RDW Coeff of Tiki 15.9 H, Plt Count 324, MPV 9.7, Immature Gran % (Auto) 0.500, Neut % (Auto) 75.4 H, Lymph % (Auto) 15.5 L, [place] % (Auto) 7.9, Eos % (Auto) 0.6, Baso % (Auto) 0.1, Absolute Neuts (auto) 6.3, Absolute Lymphs (auto) 1.30, Nucleated RBC % 0 04/08/22 06:00: WBC 8.1, RBC 2.63 L, Hgb 7.7 L, Hct 24.5 L, MCV 93.2, MCH 29.3, MCHC 31.4 L, RDW Std Deviation 54.4 H, RDW Coeff of Tiki 15.9 H, Plt Count 289, MPV 9.1 04/08/22 06:00: Sodium 136, Potassium 3.9, Chloride 103, Carbon Dioxide 29.0, Anion Gap 4 L, BUN 15, Creatinine 0.58, Estim Creat Clear Calc 29.54, Est GFR (MDRD) Af Amer 127, Est GFR (MDRD) Non-Af 105, BUN/Creatinine Ratio 26.0 H, Glucose 122 H, Calcium 8.0 L Radiography Diagnostic Testing: Radiology Impression Hip/Pelvis X-Ray 04/07/22 17:10 IMPRESSION: Fluoroscopic assistance images were obtained. Dictation for documentation purposes only. Electronically Signed: Bunny Penny MD at 18:19 EDT Reading Location ID and State: [facility] / [place] , Service support , Physical Exam Const alert and no apparent distress Resp normal respiratory effort, no retractions, no use of accessory muscles and clear to auscultation bilaterally Cardio regular rate, regular rhythm, S1 normal heart sound and S2 normal heart sound GI normal to inspection, nondistended, normoactive bowel sounds Extremity Extremity Narrative: Right hip incision shows some serous drainage in the dressing but otherwise dressing appears to be intact. Assessment & Plan Assessment/Plan (1) Closed hip fracture: QUALIFIERS: Encounter type: initial encounter Laterality: right Qualified Code(s): S72.001A - Fracture of unspecified part of neck of right femur, initial encounter for closed fracture PLAN: Correction initially put in as a left hip fracture but this is a right hip fracture. Due to mechanical fall Bedrest, pain control NQSIP performed and patient is higher than average risk for serious complication, any complication pneumonia, cardiac complication, UTI, VTE, readmission, and discharged to nursing or rehab facility. None of this is prohibitive from the patient proceeding with surgery. Patient does take aspirin at home but last dose was today. P 8/4: pt underwent an IM nail to right femur Ortho recs: WBAT, ASA 81 BID for VTE proph (2) Acute blood loss anemia: PLAN: Hg dropped from 10.3 to 7.7 No need for transfusion. Monitor (3) Vitamin D deficiency: PLAN: 25-hydroxy vitamin D level is 31. Goal is 50. Start ergocalciferol 50,000 units weekly for 8 weeks PLAN: Plan VTE prophylaxis: SCDs for now pending surgery. CODE STATUS: Per the patient's prison forms. Patient is DNR Comfort Care arrest. Disposition: TBD. Charges/Coding Visit Charges Inpatient E&M: 93554 Subs Hosp L2
[2022-04-08] MEDS: Senna/Docusate Sodium 1 Tablet 2 TABLET PO (08:13)
[2022-04-08] MEDS: Ensure Clear 120 ML Liquid PO (08:13)
[2022-04-08] MEDS: Potassium Chloride Oral Tablet 20 MEQ PO (08:13)
[2022-04-08] MEDS: Escitalopram Oxalate 10 MG Tablet 5 MG PO (08:13)
[2022-04-08] MEDS: Aspirin 81 MG TAB.CHEW PO (08:13)
[2022-04-08] MEDS: Metoprolol(XL)Succ 25 MG Tablet PO (08:14)
[2022-04-08] MEDS: oxyCODONE 5 MG Tablet PO (08:15)
[2022-04-08] MEDS: Polyethylene Glycol 3350 17 GM PACKET PO (08:16)
--- NOTE | 2022-04-08 11:39 | CASEMGMT ---
Social Work Telephone call to Rocío Preston. This administrator social welfare communicating that patient is medically cleared today. Rocío request for updated clinicals and will get back to this administrator social welfare on ability to be able to accept patient today. Clinical information faxed. Will continue to follow. Nunu SPEARS, MARJORIE
[2022-04-08] MEDS: 0.9% Saline Lock 10 ML Syringe IV (13:37)
[2022-04-08] MEDS: Cefazolin 1 GM/50 ML BAG IV (13:37)
--- NOTE | 2022-04-08 13:42 | PCM.TXEXTCAR ---
Diet Diet Order/Speech Therapy: 04/08/22 09:28 Diet: Regular - General Is pt able to select menu?: No Wound(s) RIGHT HIP: Wound Type: Surgical Incision Therapies Weight Bearing: Weight bearing as tolerated Extremity Affected:: Right Lower Physical Therapy: Eval and Treat Occupational Therapy: Eval and Treat Problem/Diagnosis (1) Closed hip fracture: Status: Acute Code(s): S72.009A - Fracture of unspecified part of neck of unspecified femur, initial encounter for closed fracture Plan: Correction initially put in as a left hip fracture but this is a right hip fracture. Due to mechanical fall Bedrest, pain control NQSIP performed and patient is higher than average risk for serious complication, any complication pneumonia, cardiac complication, UTI, VTE, readmission, and discharged to nursing or rehab facility. None of this is prohibitive from the patient proceeding with surgery. Patient does take aspirin at home but last dose was today. P 8/4: pt underwent an IM nail to right femur Ortho recs: WBAT, ASA 81 BID for VTE proph (2) Acute blood loss anemia: Status: Acute Code(s): D62 - Acute posthemorrhagic anemia Plan: Hg dropped from 10.3 to 7.7 No need for transfusion. Monitor (3) Vitamin D deficiency: Status: Acute Code(s): E55.9 - Vitamin D deficiency, unspecified Plan: 25-hydroxy vitamin D level is 31. Goal is 50. Start ergocalciferol 50,000 units weekly for 8 weeks Plan VTE prophylaxis: SCDs for now pending surgery. CODE STATUS: Per the patient's intermediate forms. Patient is DNR Comfort Care arrest. Disposition: TBD. Allergies/Procedures Done in Hospital Allergies No Known Allergies Allergy (Verified 04/06/22 14:35) Type of Care/Length of Stay Estimated LOS: Convalescent Care Less Than 30 days Type of Care Needed: Skilled Rehab Potential: Good Prognosis: Good Additional Orders/Day of Discharge Day of Discharge: 04/08/22 Dietary and Speech Recommendations Dietitian Recommendations/Changes: ADAT to Regular diet once medically able. Discharge Plan Admission Admit Date/Time: 04/06/22 16:16 Primary Reason for Your Visit: right hip fracture Attending Provider: Jasson Barrientos Primary Care Provider: Care Physician,No Primary Consulting Providers: Jordin Crowley Discharge Orders/Prescriptions Prescriptions: New aspirin 81 mg Tablet,Chewable 81 mg PO BID Qty: 60 0RF ergocalciferol (vitamin D2) [Vitamin D2] 1,250 mcg (50,000 unit) Capsule 1,250 mcg PO Q7D Qty: 7 0RF oxycodone 5 mg Tablet 5 mg PO Q4H PRN PRN (Reason: Pain Score 6-10) 3 Days Qty: 12 0RF Continued amlodipine 10 mg tablet 10 mg PO DAILY polyethylene glycol 3350 [Miralax] 17 gram Powder In Packet 17 g PO DAILY metoprolol succinate [Toprol XL] 25 mg Tablet Extended Release 24 Hr 25 mg PO DAILY melatonin 3 mg Capsule 3 mg PO QHS atorvastatin 40 mg tablet 40 mg PO QHS potassium chloride 20 mEq tablet,ER particles/crystals 20 meq PO BID escitalopram oxalate 5 mg tablet 5 mg PO DAILY baclofen 5 mg tablet 5 mg PO TID PRN (Reason: Back Pain) acetaminophen 500 mg Tablet 1,000 mg PO TID calcium carbonate 500 mg calcium (1,250 mg) Tablet,Chewable 500 mg PO Q4H PRN (Reason: Heartburn) Ensure Liquid 120 ml PO BID lorazepam 1 mg tablet 1 mg PO QHS Qty: 3 0RF Held aspirin 81 mg Tablet,Chewable 81 mg PO DAILY Hold Instructions: Resume on 05/09/22. Discontinued tramadol 50 mg tablet 50 mg PO 4X/DAY PRN (Reason: LOW BACK PAIN) Referrals / Follow Up: Jordin Crowley DO [Med Staff - Active Staff] - Within 2 Weeks Care Physician,No Primary [Primary Care Provider] - Disposition Disposition (needs filled in before D/C Order can be placed): [facility] (1) Closed hip fracture Qualifiers: Encounter type: initial encounter Laterality: right Qualified Code(s): S72.001A - Fracture of unspecified part of neck of right femur, initial encounter for closed fracture
--- NOTE | 2022-04-08 13:46 | DS.PCM_ITS ---
Providers Date of Admission: 04/06/22 Primary Care Physician: No Primary Care Phys Consultations 04/06/22 16:38 Consult: Orthopedics Routine Consulting Provider: Jordin Crowley Reason for Consult: hip fxr EMERGENT Consult: No MD Notified: Yes Date Notified: 04/06/22 Time Notified: 16:38 Method of Notification: Text Reason For Visit: HIP FX Diagnosis Discharge Diagnosis (1) Closed hip fracture: Status: Acute Code(s): S72.009A - Fracture of unspecified part of neck of unspecified femur, initial encounter for closed fracture Qualifiers: Encounter type: initial encounter Laterality: right Qualified Code(s): S72.001A - Fracture of unspecified part of neck of right femur, initial encounter for closed fracture Plan: Correction initially put in as a left hip fracture but this is a right hip fracture. Due to mechanical fall Bedrest, pain control NQSIP performed and patient is higher than average risk for serious c omplication, any complication pneumonia, cardiac complication, UTI, VTE, readmission, and discharged to nursing or rehab facility. None of this is prohibitive from the patient proceeding with surgery. Patient does take aspirin at home but last dose was today. P 8/4: pt underwent an IM nail to right femur Ortho recs: WBAT, ASA 81 BID for VTE proph (2) Acute blood loss anemia: Status: Acute Code(s): D62 - Acute posthemorrhagic anemia Plan: Hg dropped from 10.3 to 7.7 No need for transfusion. Monitor (3) Vitamin D deficiency: Status: Acute Code(s): E55.9 - Vitamin D deficiency, unspecified Plan: 25-hydroxy vitamin D level is 31. Goal is 50. Start ergocalciferol 50,000 units weekly for 8 weeks Plan VTE prophylaxis: SCDs for now pending surgery. CODE STATUS: Per the patient's [facility] forms. Patient is DNR Comfort Care arrest. Disposition: TBD. Medications at Discharge Home Medications acetaminophen 500 mg tablet 1,000 mg PO TID PAIN 04/06/22 amlodipine 10 mg tablet 10 mg PO DAILY 04/06/22 aspirin 81 mg chewable tablet 81 mg PO DAILY HTN 04/06/22 atorvastatin 40 mg tablet 40 mg PO QHS 04/06/22 baclofen 5 mg tablet 5 mg PO TID PRN Back Pain 04/06/22 calcium carbonate 500 mg calcium (1,250 mg) chewable tablet 500 mg PO Q4H PRN Heartburn 04/06/22 escitalopram oxalate 5 mg tablet 5 mg PO DAILY 04/06/22 food supplemt, lactose-reduced (Ensure oral liquid) 120 ml PO BID SUPPLEMENT 04/06/22 melatonin 3 mg capsule 3 mg PO QHS 04/06/22 metoprolol succinate 25 mg tablet,extended release 24 hr (Toprol XL) 25 mg PO DAILY HTN 04/06/22 polyethylene glycol 3350 17 gram oral powder packet (Miralax) 17 g PO DAILY 04/06/22 potassium chloride 20 mEq tablet,extended release(part/cryst) 20 meq PO BID 04/06/22 aspirin 81 mg chewable tablet 81 mg PO BID #60 tabs 04/08/22 ergocalciferol (vitamin D2) 1,250 mcg (50,000 unit) capsule (Vitamin D2) 1,250 mcg PO Q7D #7 caps 04/08/22 lorazepam 1 mg tablet 1 mg PO QHS ANXIETY #3 tabs 04/08/22 oxycodone 5 mg tablet 5 mg PO Q4H PRN PRN Pain Score 6-10 3 days #12 tabs 04/08/22 Hospital Course Operations - ( Treatment of intertrochanteric hip fracture with intramedullary nail right femur) Summary of Care Provided Minutes Spent on Discharge: 32 Weight / BMI Weight Weight: 52.5 kg Body Mass Index (BMI) 20.9 ABG / Lab / Microbiology Data Result Diagrams: 04/08/22 06:00 04/08/22 06:00 Laboratory: Laboratory Results - last 24 hr 04/07/22 06:26: WBC 8.4, RBC 3.15 L, Hgb 9.3 L, Hct 29.0 L, MCV 92.1, MCH 29.5, MCHC 32.1, RDW Std Deviation 52.5 H, RDW Coeff of Tiki 15.9 H, Plt Count 324, MPV 9.7, Immature Gran % (Auto) 0.500, Neut % (Auto) 75.4 H, Lymph % (Auto) 15.5 L, Willacy % (Auto) 7.9, Eos % (Auto) 0.6, Baso % (Auto) 0.1, Absolute Neuts (auto) 6.3, Absolute Lymphs (auto) 1.30, Nucleated RBC % 0 04/08/22 06:00: WBC 8.1, RBC 2.63 L, Hgb 7.7 L, Hct 24.5 L, MCV 93.2, MCH 29.3, MCHC 31.4 L, RDW Std Deviation 54.4 H, RDW Coeff of Tiki 15.9 H, Plt Count 289, MPV 9.1 04/08/22 06:00: Sodium 136, Potassium 3.9, Chloride 103, Carbon Dioxide 29.0, Anion Gap 4 L, BUN 15, Creatinine 0.58, Estim Creat Clear Calc 29.54, Est GFR (MDRD) Af Amer 127, Est GFR (MDRD) Non-Af 105, BUN/Creatinine Ratio 26.0 H, Glucose 122 H, Calcium 8.0 L Radiography Diagnostic Testing: Radiology Impression Hip/Pelvis X-Ray 04/07/22 17:10 IMPRESSION: Fluoroscopic assistance images were obtained. Dictation for documentation purposes only. Electronically Signed: Bunny Penny MD at 18:19 EDT Reading Location ID and State: [facility] / [place] , Service support , Meaningful Use Info Meaningful Use Diagnoses (Choose all that apply): None applicable Discharge Plan Admission Admit Date/Time: 04/06/22 16:16 Primary Reason for Your Visit: right hip fracture Attending Provider: Jasson Barrientos Primary Care Provider: Care Physician,No Primary Consulting Providers: Jordin Crowley Discharge Orders/Prescriptions Prescriptions: New aspirin 81 mg Tablet,Chewable 81 mg PO BID Qty: 60 0RF ergocalciferol (vitamin D2) [Vitamin D2] 1,250 mcg (50,000 unit) Capsule 1,250 mcg PO Q7D Qty: 7 0RF oxycodone 5 mg Tablet 5 mg PO Q4H PRN PRN (Reason: Pain Score 6-10) 3 Days Qty: 12 0RF Continued amlodipine 10 mg tablet 10 mg PO DAILY polyethylene glycol 3350 [Miralax] 17 gram Powder In Packet 17 g PO DAILY metoprolol succinate [Toprol XL] 25 mg Tablet Extended Release 24 Hr 25 mg PO DAILY melatonin 3 mg Capsule 3 mg PO QHS atorvastatin 40 mg tablet 40 mg PO QHS potassium chloride 20 mEq tablet,ER particles/crystals 20 meq PO BID escitalopram oxalate 5 mg tablet 5 mg PO DAILY baclofen 5 mg tablet 5 mg PO TID PRN (Reason: Back Pain) acetaminophen 500 mg Tablet 1,000 mg PO TID calcium carbonate 500 mg calcium (1,250 mg) Tablet,Chewable 500 mg PO Q4H PRN (Reason: Heartburn) Ensure Liquid 120 ml PO BID lorazepam 1 mg tablet 1 mg PO QHS Qty: 3 0RF Held aspirin 81 mg Tablet,Chewable 81 mg PO DAILY Hold Instructions: Resume on 05/09/22. Discontinued tramadol 50 mg tablet 50 mg PO 4X/DAY PRN (Reason: LOW BACK PAIN) Referrals / Follow Up: Jordin Crowley DO [Med Staff - Active Staff] - Within 2 Weeks Care Physician,No Primary [Primary Care Provider] - Disposition Disposition (needs filled in before D/C Order can be placed): [facility] Facility Charges/Coding Visit Charges Inpatient E&M: 64350 Disch Hosp
--- NOTE | 2022-04-08 14:04 | CASEMGMT ---
Social Work Telephone call from [facility]. Patient is able to discharge to [facility]. This 7th grade social studies teacher to fax discharge information when obtained. This 7th grade social studies teacher to patient room. Patient daughter, Jodi present. This 7th grade social studies teacher updated patient/patient family on above information. Patient agreeable to discharge plan and plan for patient to discharge to [place] today. Patient request for transportation to be set up via cot. Will continue to follow. Proposed discharge date: 04/08/2022 PLAN: evin Preston. Nunu SPEARS, CK-S
--- NOTE | 2022-04-08 14:29 | CASEMGMT ---
Concrete Foreman This social work program coordinator completed PASRR on HENS. Nunu Ramsay SOFTWARE ENGINEERING SUPERVISOR, PRESS OPERATOR AUTOMATIC-S
--- NOTE | 2022-04-08 14:48 | CASEMGMT ---
Social Work [facility] for 16:00 today. Transportation form completed and placed with patient discharge information. This social sciences instructor faxed discharge packet (COVID results, COVID screening tool, discharge summary, transfer to extended care form, and PASRR/PASRR results). This social sciences instructor updated patient, patient family, [place] and medical team on above. Proposed discharge date: 04/08/2022 PLAN: [facility] Nunu, CK-S
== END 2022-04-08 17:40 | disposition skilled nursing facility (03) | DRG 482 ==
LOC: ED 15:54 → PCU 16:15
PROVIDERS: Student in an Organized Health Care Education/Training Program; Emergency Provider Emergency Medicine
PROC: 0QS636Z Reposition Right Upper Femur with Intramedullary Internal Fixation Device, Percutaneous Approach (ICD-10-PCS; CPT 27245; principal; 2022-04-07 07:30)
DX: S72.141A Displaced intertrochanteric fracture of right femur, initial encounter for closed fracture (principal); E55.9 Vitamin D deficiency, unspecified; E78.5 Hyperlipidemia, unspecified; W19.XXXA Unspecified fall, initial encounter; I10 Essential (primary) hypertension; Z51.5 Encounter for palliative care; Z86.16 Personal history of COVID-19; M54.50 Low back pain, unspecified; Z79.82 Long term (current) use of aspirin
CPT/HCPCS: 36415; 71045; 73501; 73502; 76000; 80048; 80053; 82306; 85025; 85027; 85610; 86850; 86900; 86901; 87426; 93005; 97162; 97165; 97802; 99251; 99285; C1713; A4216; G0463; J2405

== ENCOUNTER → 2022-04-13 | Outpatient (REF) | payer MEDICARE, OTHER, SELFPAY ==
[2022-04-13 09:12] LABS: Absolute Lymphocyte Count 0.92 X10^3/uL (0.83-4.51); Absolute Neutrophil Count 7.5 X10^3/uL (2.0-7.7); Basophil# 0.01 X10^3/uL; Basophil% 0.1 % (0-1); Eosinophil# 0.07 X10^3/uL; Eosinophils% 0.8 % (0-5); Hematocrit 21.9 % (37-47); Hemoglobin 6.8 g/dL (12.0-15.0); Lymphocyte # 0.92 X10^3/ul (0.83-4.51); Lymphocyte % 9.9 % (19-41); Mean Corp Hgb Conc 31.1 g/dL (32-36); Mean Corpuscular Hgb 28.9 pg (27.0-32.0); Mean Corpuscular Volume 93.2 fL (81-99); Mean Platelet Vol. 9.2 fl (6.2-12.0); Monocyte# 0.72 X10^3/uL; Monocyte% 7.8 % (0-10); NRBC Flagged by Analyzer 0 % (0-5); Neutrophil # 7.46 X10^3/uL (2.7-7.7); Neutrophil % 80.2 % (47-70); Platelet Count 416 K/mm3 (150-450); RBC Distribution Width CV 16.1 % (11.6-14.6); RBC Distribution Width SD 53.8 fl (35.1-43.9); Red Blood Count 2.35 M/mm3 (4.2-5.4); White Blood Count 9.3 K/mm3 (4.4-11.0)
[2022-04-13 09:33] LABS: Anion Gap 6 (5-15); BUN 18 mg/dL (7-18); BUN/Creat Ratio 30.9 RATIO (10-20); Calcium,Total 8.5 mg/dL (8.5-10.1); Chloride 100 mmol/L (98-107); Creatinine, Serum 0.58 mg/dL (0.55-1.02); EST Glomerular Filtration Rate 105 mL/min (>60); Est Glom Filt Rate - Afr Amer 126 mL/min (>60); Glucose 104 mg/dL (74-106); Potassium 3.6 mmol/L (3.5-5.1); Sodium Level 134 mmol/L (136-145)
== END ==
LOC: OLS.WHLTCC 04:00
PROVIDERS: Visit Provider Family Medicine
DX: I10 Essential (primary) hypertension (principal); D62 Acute posthemorrhagic anemia; E55.9 Vitamin D deficiency, unspecified; E78.5 Hyperlipidemia, unspecified; E87.6 Hypokalemia; F41.9 Anxiety disorder, unspecified; G47.00 Insomnia, unspecified; K21.9 Gastro-esophageal reflux disease without esophagitis
CPT/HCPCS: 36415; 80048; 85025

== ENCOUNTER → 2022-04-22 | Outpatient (REF) | payer MEDICARE, SELFPAY ==
[2022-04-22 08:40] LABS: AST(SGOT) 17 U/L (15-37); Alanine Aminotransfer ALT/SGPT 21 U/L (13-56); Albumin, Serum 2.4 g/dL (3.2-5.0); Alkaline Phosphatase 200 U/L (45-117); Bilirubin, Direct 0.25 mg/dL (0.00-0.30); Protein, Total 6.4 g/dL (6.4-8.2)
== END ==
LOC: OLS.WHLTCC 05:00
PROVIDERS: Visit Provider Family Medicine
DX: M62.81 Muscle weakness (generalized) (principal); S72.002D Fracture of unspecified part of neck of left femur, subsequent encounter for closed fracture with routine healing; D62 Acute posthemorrhagic anemia; Z47.89 Encounter for other orthopedic aftercare
CPT/HCPCS: 36415; 80076

== ENCOUNTER → 2022-05-18 | Outpatient (REF) | payer MEDICARE, OTHER, SELFPAY ==
[2022-05-18 08:41] LABS: Absolute Lymphocyte Count 1.61 X10^3/uL (0.83-4.51); Absolute Neutrophil Count 4.3 X10^3/uL (2.0-7.7); Basophil# 0.03 X10^3/uL; Basophil% 0.4 % (0-1); Eosinophil# 0.15 X10^3/uL; Eosinophils% 2.2 % (0-5); Hematocrit 31.8 % (37-47); Lymphocyte # 1.61 X10^3/ul (0.83-4.51); Lymphocyte % 23.9 % (19-41); Mean Corp Hgb Conc 31.4 g/dL (32-36); Mean Corpuscular Hgb 28.5 pg (27.0-32.0); Mean Corpuscular Volume 90.6 fL (81-99); Mean Platelet Vol. 9.7 fl (6.2-12.0); Monocyte% 8.9 % (0-10); NRBC Flagged by Analyzer 0 % (0-5); Neutrophil # 4.32 X10^3/uL (2.7-7.7); Neutrophil % 64.3 % (47-70); Platelet Count 355 K/mm3 (150-450); RBC Distribution Width CV 15.3 % (11.6-14.6); RBC Distribution Width SD 51.4 fl (35.1-43.9); Red Blood Count 3.51 M/mm3 (4.2-5.4); White Blood Count 6.7 K/mm3 (4.4-11.0)
[2022-05-18 08:55] LABS: Anion Gap 9 (5-15); BUN 12 mg/dL (7-18); Chloride 103 mmol/L (98-107); Creatinine, Serum 0.57 mg/dL (0.55-1.02); EST Glomerular Filtration Rate 107 mL/min (>60); Est Glom Filt Rate - Afr Amer 129 mL/min (>60); Glucose 91 mg/dL (74-106); Potassium 2.9 mmol/L (3.5-5.1); Sodium Level 140 mmol/L (136-145)
== END ==
LOC: OLS.WHLTCC 05:00
PROVIDERS: Visit Provider Family Medicine
DX: I10 Essential (primary) hypertension (principal); S72.002D Fracture of unspecified part of neck of left femur, subsequent encounter for closed fracture with routine healing; M62.81 Muscle weakness (generalized); D62 Acute posthemorrhagic anemia
CPT/HCPCS: 36415; 80048; 85025

== ENCOUNTER → 2022-05-25 | Outpatient (REF) | payer MEDICARE, OTHER, SELFPAY ==
[2022-05-27 07:40] LABS: Glucose, Dipstick Normal (Normal); Ketone-Dipstick Negative (Negative); Leukocyte Esterase-Dipstick 500 /ul (Negative); Nitrite-Dipstick Negative (Negative); Occult Blood-Urine Negative /ul (Negative); Protein-Dipstick Negative (Negative); Specific Gravity, Urine 1.015 (1.002-1.030); Urine Bilirubin Dipstick Negative (Negative); Urine Urobilinogen Normal (Normal)
[2022-05-27 07:41] LABS: Color, Urine Yellow (Yellow); Urine Clarity Clear (Clear)
== END ==
LOC: OLS.WHLTSB 18:00
PROVIDERS: Visit Provider Family Medicine
DX: N39.0 Urinary tract infection, site not specified (principal); S72.001D Fracture of unspecified part of neck of right femur, subsequent encounter for closed fracture with routine healing; E55.9 Vitamin D deficiency, unspecified; E87.6 Hypokalemia; R13.11 Dysphagia, oral phase
CPT/HCPCS: 81002; 87086; 87088

== ENCOUNTER → 2022-06-11 | Outpatient (REF) | payer MEDICARE, OTHER, SELFPAY ==
[2022-06-11 12:31] LABS: Absolute Lymphocyte Count 1.57 X10^3/uL (0.83-4.51); Absolute Neutrophil Count 4.1 X10^3/uL (2.0-7.7); Basophil# 0.02 X10^3/uL; Basophil% 0.3 % (0-1); Eosinophil# 0.33 X10^3/uL; Eosinophils% 4.9 % (0-5); Hematocrit 35.3 % (37-47); Lymphocyte # 1.57 X10^3/ul (0.83-4.51); Lymphocyte % 23.5 % (19-41); Mean Corp Hgb Conc 31.2 g/dL (32-36); Mean Corpuscular Hgb 28.1 pg (27.0-32.0); Mean Corpuscular Volume 90.1 fL (81-99); Mean Platelet Vol. 9.1 fl (6.2-12.0); Monocyte# 0.61 X10^3/uL; Monocyte% 9.1 % (0-10); NRBC Flagged by Analyzer 0 % (0-5); Neutrophil # 4.13 X10^3/uL (2.7-7.7); Neutrophil % 61.9 % (47-70); Platelet Count 356 K/mm3 (150-450); RBC Distribution Width CV 15.1 % (11.6-14.6); RBC Distribution Width SD 49.2 fl (35.1-43.9); Red Blood Count 3.92 M/mm3 (4.2-5.4); White Blood Count 6.7 K/mm3 (4.4-11.0)
[2022-06-11 12:48] LABS: Anion Gap 5 (5-15); BUN 17 mg/dL (7-18); BUN/Creat Ratio 27.6 RATIO (10-20); Calcium,Total 8.9 mg/dL (8.5-10.1); Chloride 104 mmol/L (98-107); Creatinine, Serum 0.62 mg/dL (0.55-1.02); EST Glomerular Filtration Rate 98 mL/min (>60); Est Glom Filt Rate - Afr Amer 118 mL/min (>60); Glucose 104 mg/dL (74-106); Magnesium 1.9 mg/dL (1.6-2.6); Potassium 3.6 mmol/L (3.5-5.1); Sodium Level 139 mmol/L (136-145)
== END ==
LOC: OLS.WHLTSB 11:40
PROVIDERS: Visit Provider Family Medicine
DX: I10 Essential (primary) hypertension (principal); S72.001A Fracture of unspecified part of neck of right femur, initial encounter for closed fracture; N39.0 Urinary tract infection, site not specified; E55.9 Vitamin D deficiency, unspecified; S72.002D Fracture of unspecified part of neck of left femur, subsequent encounter for closed fracture with routine healing; M62.81 Muscle weakness (generalized)
CPT/HCPCS: 36415; 80048; 83735; 85025

== ENCOUNTER → 2022-07-06 | Outpatient (REF) | payer MEDICARE, OTHER, SELFPAY ==
[2022-07-06 10:04] LABS: Absolute Lymphocyte Count 1.88 X10^3/uL (0.83-4.51); Absolute Neutrophil Count 4.7 X10^3/uL (2.0-7.7); Basophil# 0.04 X10^3/uL; Basophil% 0.5 % (0-1); Eosinophil# 0.26 X10^3/uL; Eosinophils% 3.4 % (0-5); Hematocrit 34.7 % (37-47); Hemoglobin 11.1 g/dL (12.0-15.0); Lymphocyte # 1.88 X10^3/ul (0.83-4.51); Lymphocyte % 24.7 % (19-41); Mean Corpuscular Hgb 28.2 pg (27.0-32.0); Mean Corpuscular Volume 88.1 fL (81-99); Mean Platelet Vol. 10.3 fl (6.2-12.0); Monocyte# 0.71 X10^3/uL; Monocyte% 9.3 % (0-10); NRBC Flagged by Analyzer 0 % (0-5); Neutrophil % 61.7 % (47-70); Platelet Count 339 K/mm3 (150-450); RBC Distribution Width CV 15.1 % (11.6-14.6); Red Blood Count 3.94 M/mm3 (4.2-5.4); White Blood Count 7.6 K/mm3 (4.4-11.0)
[2022-07-06 10:20] LABS: Anion Gap 7 (5-15); BUN 18 mg/dL (7-18); BUN/Creat Ratio 25.9 RATIO (10-20); Calcium,Total 9.1 mg/dL (8.5-10.1); Chloride 106 mmol/L (98-107); Creatinine, Serum 0.69 mg/dL (0.55-1.02); EST Glomerular Filtration Rate 85 mL/min (>60); Est Glom Filt Rate - Afr Amer 103 mL/min (>60); Glucose 85 mg/dL (74-106); Potassium 3.8 mmol/L (3.5-5.1); Sodium Level 139 mmol/L (136-145)
== END ==
LOC: OLS.WHLTSB 05:00
PROVIDERS: Visit Provider Family Medicine
DX: I10 Essential (primary) hypertension (principal); S72.001A Fracture of unspecified part of neck of right femur, initial encounter for closed fracture; N39.0 Urinary tract infection, site not specified; E55.9 Vitamin D deficiency, unspecified; S72.002D Fracture of unspecified part of neck of left femur, subsequent encounter for closed fracture with routine healing
CPT/HCPCS: 36415; 80048; 85025

== ENCOUNTER → 2022-08-10 | Outpatient (REF) | payer MEDICARE, OTHER, SELFPAY ==
[2022-08-10 08:19] LABS: Absolute Lymphocyte Count 1.85 X10^3/uL (0.83-4.51); Absolute Neutrophil Count 5.1 X10^3/uL (2.0-7.7); Basophil# 0.02 X10^3/uL; Basophil% 0.3 % (0-1); Eosinophil# 0.19 X10^3/uL; Eosinophils% 2.4 % (0-5); Hematocrit 21.3 % (37-47); Hemoglobin 6.5 g/dL (12.0-15.0); Lymphocyte # 1.85 X10^3/ul (0.83-4.51); Lymphocyte % 23.4 % (19-41); Mean Corp Hgb Conc 30.5 g/dL (32-36); Mean Corpuscular Hgb 27.7 pg (27.0-32.0); Mean Corpuscular Volume 90.6 fL (81-99); Mean Platelet Vol. 10.1 fl (6.2-12.0); Monocyte# 0.68 X10^3/uL; Monocyte% 8.6 % (0-10); NRBC Flagged by Analyzer 0 % (0-5); Neutrophil # 5.11 X10^3/uL (2.7-7.7); Neutrophil % 64.8 % (47-70); Platelet Count 258 K/mm3 (150-450); RBC Distribution Width CV 16.9 % (11.6-14.6); RBC Distribution Width SD 56.4 fl (35.1-43.9); Red Blood Count 2.35 M/mm3 (4.2-5.4); White Blood Count 7.9 K/mm3 (4.4-11.0)
[2022-08-10 08:30] LABS: Anion Gap 3 (5-15); BUN 18 mg/dL (7-18); BUN/Creat Ratio 29.7 RATIO (10-20); Calcium,Total 8.6 mg/dL (8.5-10.1); Chloride 109 mmol/L (98-107); Cholesterol 123 mg/dL (200); Creatinine, Serum 0.61 mg/dL (0.55-1.02); EST Glomerular Filtration Rate 100 mL/min (>60); Est Glom Filt Rate - Afr Amer 121 mL/min (>60); Glucose 92 mg/dL (74-106); High Density Lipoprotein 46 mg/dL; Potassium 3.8 mmol/L (3.5-5.1); Sodium Level 141 mmol/L (136-145); Triglycerides 93 mg/dL; Very Low Density Lipoprotein 19 mg/dL (5-40)
[2022-08-10 08:32] LABS: Vitamin D,25 Hydroxy 77.5 ng/mL
== END ==
LOC: OLS.WHLTSB 05:00
PROVIDERS: Visit Provider Internal Medicine
DX: E78.5 Hyperlipidemia, unspecified (principal); E55.9 Vitamin D deficiency, unspecified; I10 Essential (primary) hypertension; N39.0 Urinary tract infection, site not specified; S72.001A Fracture of unspecified part of neck of right femur, initial encounter for closed fracture; S72.002D Fracture of unspecified part of neck of left femur, subsequent encounter for closed fracture with routine healing
CPT/HCPCS: 36415; 80048; 80061; 82306; 85025

== ENCOUNTER → 2022-08-11 | Outpatient (CLI) | payer MEDICARE, OTHER, SELFPAY ==
[2022-08-11] MEDS: 0.9% NaCl Peripheral Flush Adult/Peds IV (08:38)
[2022-08-11 08:55] VITALS: BP 152/59; PULSE 97; RESP 12; TEMP 36.3; O2SAT 96; BMI 21.9
[2022-08-11 09:15] VITALS: BP 124/68; PULSE 89; RESP 14; TEMP 36.3; O2SAT 96
[2022-08-11 10:14] VITALS: BP 136/68; PULSE 92; RESP 16; TEMP 36.2
[2022-08-11] MEDS: Furosemide 20 MG/2 ML VIAL IV (10:41)
[2022-08-11 11:10] VITALS: BP 138/70; PULSE 94; RESP 16; TEMP 36.4; O2SAT 96
[2022-08-11 12:10] VITALS: BP 117/69; PULSE 92; RESP 14; TEMP 36.4; O2SAT 96
== END | disposition home or self-care (01) ==
LOC: MEDOUTP 08:29
PROVIDERS: Referring Provider Nurse Practitioner Adult Health; Visit Provider Nurse Practitioner Adult Health
DX: D64.9 Anemia, unspecified (principal)
CPT/HCPCS: 36430; 86850; 86900; 86901; 86920; 86922; J7040; P9016; A4216; J1940

== ENCOUNTER → 2022-08-12 | Outpatient (REF) | payer MEDICARE, OTHER, SELFPAY ==
[2022-08-12 08:47] LABS: Absolute Lymphocyte Count 1.29 X10^3/uL (0.83-4.51); Absolute Neutrophil Count 4.5 X10^3/uL (2.0-7.7); Basophil# 0.03 X10^3/uL; Basophil% 0.5 % (0-1); Eosinophil# 0.17 X10^3/uL; Eosinophils% 2.6 % (0-5); Hematocrit 30.1 % (37-47); Lymphocyte # 1.29 X10^3/ul (0.83-4.51); Lymphocyte % 19.5 % (19-41); Mean Corp Hgb Conc 33.2 g/dL (32-36); Mean Corpuscular Hgb 29.7 pg (27.0-32.0); Mean Corpuscular Volume 89.3 fL (81-99); Monocyte# 0.59 X10^3/uL; Monocyte% 8.9 % (0-10); NRBC Flagged by Analyzer 0 % (0-5); Neutrophil # 4.52 X10^3/uL (2.7-7.7); Neutrophil % 68.2 % (47-70); Platelet Count 298 K/mm3 (150-450); RBC Distribution Width CV 16.9 % (11.6-14.6); RBC Distribution Width SD 54.2 fl (35.1-43.9); Red Blood Count 3.37 M/mm3 (4.2-5.4); White Blood Count 6.6 K/mm3 (4.4-11.0)
== END ==
LOC: OLS.WHLTSB 05:00
PROVIDERS: Visit Provider Internal Medicine
DX: D64.9 Anemia, unspecified (principal); E56.9 Vitamin deficiency, unspecified; H04.129 Dry eye syndrome of unspecified lacrimal gland; S72.001A Fracture of unspecified part of neck of right femur, initial encounter for closed fracture; E55.9 Vitamin D deficiency, unspecified
CPT/HCPCS: 36415; 85025

== ENCOUNTER → 2022-08-19 | Outpatient (REF) | payer MEDICARE, OTHER, SELFPAY ==
[2022-08-19 08:41] LABS: Absolute Lymphocyte Count 1.47 X10^3/uL (0.83-4.51); Absolute Neutrophil Count 4.4 X10^3/uL (2.0-7.7); Basophil# 0.03 X10^3/uL; Basophil% 0.4 % (0-1); Eosinophil# 0.28 X10^3/uL; Eosinophils% 4.1 % (0-5); Hemoglobin 10.7 g/dL (12.0-15.0); Lymphocyte # 1.47 X10^3/ul (0.83-4.51); Lymphocyte % 21.6 % (19-41); Mean Corp Hgb Conc 30.6 g/dL (32-36); Mean Corpuscular Hgb 28.2 pg (27.0-32.0); Mean Corpuscular Volume 92.1 fL (81-99); Mean Platelet Vol. 9.7 fl (6.2-12.0); Monocyte# 0.59 X10^3/uL; Monocyte% 8.7 % (0-10); NRBC Flagged by Analyzer 0.3 % (0-5); Neutrophil # 4.41 X10^3/uL (2.7-7.7); Neutrophil % 64.6 % (47-70); Platelet Count 410 K/mm3 (150-450); RBC Distribution Width CV 16.5 % (11.6-14.6); RBC Distribution Width SD 55.2 fl (35.1-43.9); White Blood Count 6.8 K/mm3 (4.4-11.0)
== END ==
LOC: OLS.WHLTSB 05:00
PROVIDERS: Visit Provider Nurse Practitioner Adult Health
DX: D64.9 Anemia, unspecified (principal); H04.129 Dry eye syndrome of unspecified lacrimal gland; S72.001A Fracture of unspecified part of neck of right femur, initial encounter for closed fracture; E55.9 Vitamin D deficiency, unspecified
CPT/HCPCS: 36415; 85025

== ENCOUNTER → 2022-08-26 | Outpatient (REF) | payer MEDICARE, OTHER, SELFPAY ==
[2022-08-26 09:01] LABS: Absolute Lymphocyte Count 1.29 X10^3/uL (0.83-4.51); Absolute Neutrophil Count 4.1 X10^3/uL (2.0-7.7); Basophil# 0.05 X10^3/uL; Basophil% 0.8 % (0-1); Eosinophil# 0.14 X10^3/uL; Eosinophils% 2.3 % (0-5); Hematocrit 34.8 % (37-47); Hemoglobin 11.3 g/dL (12.0-15.0); Lymphocyte # 1.29 X10^3/ul (0.83-4.51); Lymphocyte % 21.3 % (19-41); Mean Corp Hgb Conc 32.5 g/dL (32-36); Mean Corpuscular Hgb 29.4 pg (27.0-32.0); Mean Corpuscular Volume 90.6 fL (81-99); Mean Platelet Vol. 9.1 fl (6.2-12.0); Monocyte# 0.47 X10^3/uL; Monocyte% 7.8 % (0-10); NRBC Flagged by Analyzer 0 % (0-5); Neutrophil # 4.09 X10^3/uL (2.7-7.7); Neutrophil % 67.6 % (47-70); Platelet Count 358 K/mm3 (150-450); RBC Distribution Width CV 15.9 % (11.6-14.6); RBC Distribution Width SD 53.1 fl (35.1-43.9); Red Blood Count 3.84 M/mm3 (4.2-5.4); White Blood Count 6.1 K/mm3 (4.4-11.0)
== END ==
LOC: OLS.WHLTSB 05:00
PROVIDERS: Visit Provider Nurse Practitioner Adult Health
DX: D64.9 Anemia, unspecified (principal); H04.129 Dry eye syndrome of unspecified lacrimal gland; E55.9 Vitamin D deficiency, unspecified; S72.001A Fracture of unspecified part of neck of right femur, initial encounter for closed fracture
CPT/HCPCS: 36415; 85025

== ENCOUNTER → 2022-09-07 | Outpatient (REF) | payer MEDICARE, OTHER, SELFPAY ==
[2022-09-07 08:29] LABS: Absolute Neutrophil Count 3.9 X10^3/uL (2.0-7.7); Basophil# 0.03 X10^3/uL; Basophil% 0.5 % (0-1); Eosinophil# 0.23 X10^3/uL; Eosinophils% 3.7 % (0-5); Hematocrit 34.8 % (37-47); Hemoglobin 11.1 g/dL (12.0-15.0); Lymphocyte % 22.7 % (19-41); Mean Corp Hgb Conc 31.9 g/dL (32-36); Mean Corpuscular Hgb 29.4 pg (27.0-32.0); Mean Corpuscular Volume 92.1 fL (81-99); Mean Platelet Vol. 10.5 fl (6.2-12.0); Monocyte% 9.7 % (0-10); NRBC Flagged by Analyzer 0 % (0-5); Neutrophil # 3.91 X10^3/uL (2.7-7.7); Neutrophil % 63.2 % (47-70); Platelet Count 290 K/mm3 (150-450); RBC Distribution Width CV 15.6 % (11.6-14.6); RBC Distribution Width SD 53.1 fl (35.1-43.9); Red Blood Count 3.78 M/mm3 (4.2-5.4); White Blood Count 6.2 K/mm3 (4.4-11.0)
[2022-09-07 08:42] LABS: Anion Gap 6 (5-15); BUN 18 mg/dL (7-18); Chloride 106 mmol/L (98-107); Creatinine, Serum 0.67 mg/dL (0.55-1.02); EST Glomerular Filtration Rate 89 mL/min (>60); Est Glom Filt Rate - Afr Amer 108 mL/min (>60); Glucose 81 mg/dL (74-106); Potassium 3.7 mmol/L (3.5-5.1); Sodium Level 141 mmol/L (136-145)
== END ==
LOC: OLS.WHLTSB 05:00
PROVIDERS: Visit Provider Internal Medicine
DX: I10 Essential (primary) hypertension (principal); D64.9 Anemia, unspecified; H04.129 Dry eye syndrome of unspecified lacrimal gland; S72.001A Fracture of unspecified part of neck of right femur, initial encounter for closed fracture; E55.9 Vitamin D deficiency, unspecified
CPT/HCPCS: 36415; 80048; 85025

== ENCOUNTER 2022-09-19 10:58 | Day surgery (SDC) | payer MEDICARE, OTHER, SELFPAY ==
[2022-09-19] MEDS: Lactated Ringers 1,000 ML 15 ML IV (12:03)
[2022-09-19 12:04] VITALS: BP 161/76; PULSE 92; RESP 16; TEMP 36.8; O2SAT 95; BMI 23.1
--- NOTE | 2022-09-19 12:20 | PCM.HP.BLA ---
History and Physical Date of Admission: 09/19/22 Date of Service:? 08/22/22 MR#: [id number] Acct: [id number] Name:GRAY PEREZ Rep #: [id number] : 1935 ? ? Provider: Dr. Valerio Toro MD Age/Sex:? 86/F ? ? Location: [facility] Status: Signed Intake Vital Signs ? 08/11/2208:55 08/22/2209:14 Height 5 ft 5 ft Weight: ? 114 lb BMI ? 22.2 BP ? 151/86 H Blood Pressure Location ? Rt brachial Position ? Sitting Respiration ? 16 Intake Visit Reasons:?C-Scope/Anemia Chief Complaint: c-scope/anemia Call Center Coordinator Required: No Is patient in pain?: No Allergies No Known Allergies Allergy (Verified 08/22/22 09:16) Medications amlodipine 10 mg tablet 10 mg PO DAILY 04/06/22 [History Confirmed 08/22/22] atorvastatin 40 mg tablet 40 mg PO QHS 04/06/22 [History Confirmed 08/22/22] baclofen 5 mg tablet 5 mg PO TID PRN Back Pain 04/06/22 [History Confirmed 08/22/22] calcium carbonate 500 mg calcium (1,250 mg) chewable tablet 500 mg PO Q4H PRN Heartburn 04/06/22 [History Confirmed 08/22/22] escitalopram oxalate 5 mg tablet 5 mg PO DAILY 04/06/22 [History Confirmed 08/22/22] food supplemt, lactose-reduced (Ensure oral liquid) 120 ml PO BID SUPPLEMENT 04/06/22 [History Confirmed 08/22/22] melatonin 3 mg capsule 3 mg PO QHS 04/06/22 [History Confirmed 08/22/22] metoprolol succinate 25 mg tablet,extended release 24 hr (Toprol XL) 25 mg PO DAILY HTN 04/06/22 [History Confirmed 08/22/22] polyethylene glycol 3350 17 gram oral powder packet (Miralax) 17 g PO DAILY 04/06/22 [History Confirmed 08/22/22] potassium chloride 20 mEq tablet,extended release(part/cryst) 20 meq PO BID 04/06/22 [History Confirmed 08/22/22] lorazepam 1 mg tablet 1 mg PO QHS ANXIETY #3 tabs 04/08/22 [Rx Confirmed 08/22/22] oxycodone 5 mg tablet 5 mg PO Q4H PRN PRN Pain Score 6-10 3 days #12 tabs 04/08/22 [Rx Confirmed 08/22/22] ergocalciferol (vitamin D2) 1,250 mcg (50,000 unit) capsule (Vitamin D2) 1,250 mcg PO QWEEK 08/11/22 [History Confirmed 08/22/22] ferrous sulfate 325 mg (65 mg iron) tablet 325 mg PO DAILY 08/11/22 [History Confirmed 08/22/22] pantoprazole 40 mg tablet,delayed release 40 mg PO DAILY 08/11/22 [History Confirmed 08/22/22] trazodone 50 mg tablet 50 mg PO QHS PRN Insomnia 08/11/22 [History Confirmed 08/22/22] vit C 250 mg-vit E 90 mg-zinc 40 mg-copper 1 ij-[id number]-upeset capsule (PreserVision AREDS-2) 1 cap PO DAILY 08/11/22 [History Confirmed 08/22/22] PFSH Medical History?(Updated 08/22/22 @ 11:[address] Valerio Toro MD) Anxiety Constipation COVID-19 GERD without esophagitis Hyperlipemia Hypokalemia Insomnia Low back pain Muscle weakness (generalized) Primary hypertension Vitamin D deficiency Surgical History?(Updated 08/22/22 @ 09:14 by Casandra Booker) S/P cataract extraction S/P laparoscopic cholecystectomy Status post right hip replacement Family History?(Updated 04/06/22 @ 16:[address] Jasson Barrientos, DO) Mother Hip fracture Social History?(Updated 08/22/22 @ 09:14 by Casandra Booker) Smoking Status:? Never smoker alcohol intake:? never HPI HPI HPI: ?Patient is a 86-year-old female who presents for need to schedule diagnostic EGD and colonoscopy secondary to observation of dark tarry stools and acute blood loss anemia.? They are referred for surgical consultation from [facility].? She presents today with her daughter.? Her daughter provides most the history and states that from 08/07-08/10 her mother experienced dark stools.? She insists that she was feeling well through this, but did have laboratories drawn which showed anemia with a hemoglobin of 6.5.? After this result came to light, she did admit to some fatigue but says she was not weak.? This led to a blood transfusion and patient states that she has remained stable since both in terms of her wellbeing as well as not noticed any further bleeding from below. Patient has not had prior colonoscopy.? Patient has no personal history of inflammatory bowel disease or diverticulitis, however, patient remarks that she will have occasional pains in her left lower quadrant.? He denies ever requiring antibiotics for this issue.? They describe their bowel habits as generally tending towards constipation and reports that historically she would go 3 to 4 days without a bowel movement, but now he takes MiraLAX once a week to remain regular.? With this medication she experiences bowel movements approximately 3 times per day and there is no significant straining required.? They have not noticed recent bleeding since the transfusion.? Scratch that there is no history of hemorrhoids. Patient has no family history of colon cancer, inflammatory bowel disease, or diverticulitis, but patient and her daughter qualify this stating that the family history is not well known as most of her family still resides in [facility] and this is not a topic that is widely discussed.? ? The patient's weight is not stable.? Patient reports a weight loss of approximately 18 pounds during a period of prolonged illness related to COVID from January to April of this year.? However, her daughter reports that there has been a 14 pound weight regain as patient has recently been improving following a hip surgery. The patient is not prescribed anticoagulants/blood thinners. Relevant prior abdominal surgical history includes: Cholecystectomy and possible bladder mesh Patient also does have a significant history of heartburn.? She states that she was diagnosed with GERD by her PCP in approximately 2008.? Her daughter reports no meds were given but she was instructed to take Tums as she felt symptoms.? However, for the last 4 to 5 years, at least, patient reports that she cannot eat enough and finds food getting stuck.? She denies any overt symptoms of reflux, but does complain of heartburn with trigger foods such as spicy foods.? She has never undergone upper endoscopy. ROS General General: No weight change, appetite, fatigue, colon cancer, breast cancer or weakness HEENT HEENT: No difficulty swallowing, eye injury, eye surgery, swollen glands or hoarseness Endo Endocrine: No thyroid disease, diabetes mellitus, thyroid cancer, Hair loss, heat intolerance or cold intolerance Skin Skin: No rash or changing moles Breast Breast: No left breast lump, right breast lump, nipple discharge, breast pain, abnormal mammogram, abnormal US or breast enlargement Musc Musculoskeletal: Yes arthritis; No back problems, rheumatoid arthritis, gout or joint pain Cardio Cardiovascular: Yes high blood pressure; No murmur, pacemaker, heart disease, atrial fibrillation, heart attack, heart stent, palpitations, shortness of breat with exertion or chest pain Psych Psychiatric: Yes depression and anxiety; No hearing voices Resp Respiratory: No shortness of breath, No sleep apnea, No cough, No COPD, No asthma, No emphysema and No wheezing Gastro Gastrointestinal: Yes abdominal pain, No nausea or vomiting, No diarrhea, No constipation, Yes blood in stool, Yes acid reflux, No hemorrhoids, No ulcers, No gallbladder problem and Yes black,tarry stools Ty Hematologic: No blood thinners, No blood disorders, No bleeding, Yes anemia and No blood clots Neuro Neurologic: No system reviewed and no additional complaints, except as documented, No as per HPI, No abnormal gait, No abnormal hearing, No abnormal movements, No abnormal speech, No behavioral changes, No burning sensations, No confusion, No convulsions, No disequilibrium, No dizziness, No localized weakness, No frequent falls, No headache(s), No lack of coordination, No loss of vision, No memory loss, No numbness, No other visual disturbances, No radicular pain, No restless legs, No sensory deficit, No syncope, No tingling, No tremor(s), No weakness and No other Exam Const General: cooperative, not anxious and well hydrated Nutritional Appearance: thin Orientation: alert, awake, oriented x3, oriented to person and oriented to place Resp Effort & Inspection: normal respiratory effort GI Other: Slender, no scars visible, soft, nontender to palpation x4 quadrants Assessment and Plan Assessment and Plan (1) Anemia: ?Status:?Acute (2) Melena: ?Status:?Acute (3) Heartburn: ?Status:?Acute (4) Dysphagia: ?Status:?Acute Plan This is an 86-year-old, relatively healthy, female who presents with a 4-day period of melena and subsequent anemia requiring blood transfusion.? Patient reports spontaneous resolution of her melena and her hemoglobin appears to have stabilized.? However, patient has not had further investigation as to the cause.? She has a longtime history of GERD, but has never been on PPI therapy and now reports significant dysphagia.? Given that her complaint is for 1 of melena rather than hematochezia, I remain suspicious for possible upper GI source to her blood loss.? Additionally, patient has never undergone colonoscopy.? Therefore, I am compelled to recommend diagnostic EGD and colonoscopy.? This recommendation and procedure details were described to both patient and her daughter.? They are accepting of this recommendation.? Prep instructions were provided and we will look to obtain a date for this procedure. I have examined the patient the following changes are noted: Despite a lengthy conversation with patient's daughter, patient's family has elected to proceed with only EGD for evaluation at this time. Patient's daughter insists this is a family decision and they are wanting to take a stepwise approach. I have shared with daughter my concerns that this raises the potential for multiple anesthesia events and limits the investigation that is possible. Mrs. Vidal reports that she is mostly concerned about her difficulty swallowing and weight loss, but I have shared that this too can be secondary to a lower GI source (that is the weight loss). Despite these attempts at clarification, patient's family remains resolute that they want to proceed with EGD only. They confirm understanding of information that I have shared and appreciation for my time. Therefore we will proceed with EGD under sedation only today. Outside of the above issues, Mrs. Vidal denies any recurrence of bleeding or noting dark stools. Her energy level is reported as good.
--- NOTE | 2022-09-19 12:30 | IMM_PTH ---
PATIENT: GRAY MAYERS LOC: EN U#:[id number] AGE/SX: 86/F ROOM: RE09/19/[address]: Dr. Valerio Toro MD : 1935 BED: DIS: 09/19/2022 SPEC #: [id number] RECD: 09/19/22 14:22 STATUS: IVELISSE REMansi #: [id number] EDUAR: 09/19/22 12:[address]: Valerio Toro DEPT: IMMUNOHISTOCHEMISTRY RECD BY: Willow Wells ENTERED: 09/19/22 14:22 SP TYPE: IMMUNO OTHR DR: Isha Hoffman, HOME CARE RN-C Tissues: B - Stomach, NOS Procedures: H Pylori (initial) PHYSICIAN & INSTITUTION [place] [id number] SPECIMEN INFORMATION: Tissue Source: B ? Antrum biopsy Clinical Info: Anemia, melena, heartburn, dysphagia Specimen Number: [id number] CPT code: 28923 METHODOLOGY: Deparaffinized sections of prefer/formalin-fixed tissue or PAP/DQ stained slides are incubated with monoclonal/polyclonal antibodies/oligonucleotide probes. Localization is made via biotin free immunoperoxidase method. Appropriate controls are performed and reacted as expected. Results on target cell population are indicated in the following table: RESULTS: ANTIBODY / CLONE RESULT Block B H Pylori (polyclonal) negative These tests were developed and their performance characteristics determined by [facility]. They may not have been cleared or approved by the U.S. Food and Drug Administration. The FDA has determined that such clearance or approval is not necessary. The above immunohistochemical/dualISH markers are ordered and reviewed by the Pathologist. INTERPRETATION: B. Antrum, biopsy: Negative for Helicobacter pylori organisms. SJ:julia 07/21/2023
--- NOTE | 2022-09-19 12:30 | EGD_PTH ---
PATIENT: GRAY MAYERS LOC: EN U#:[id number] AGE/SX: 86/F ROOM: RE09/19/[address]: Dr. Valerio Toro MD : 1935 BED: DIS: 09/19/2022 SPEC #: [id number] RECD: 09/19/22 13:38 STATUS: IVELISSE MAURI #: [id number] EDUAR: 09/19/22 12:[address]: Valerio Toro DEPT: SURGICAL PATHOLOGY RECD BY: Sammie Willett ENTERED: 09/19/22 14:00 SP TYPE: EGD BIOPSY OTHR DR: Isha Hoffman, JOSIAH-C Tissues: A - Duodenum, NOS B - Gastric mucous membrane C - Gastric mucous membrane D - Gastric mucous membrane Procedures: Surgery Specimen Level IV HEADER OPERATION: EGD ([facility] [place]), biopsy PRE-OP DIAGNOSIS: Anemia, melena, heartburn, dysphagia TISSUE SUBMITTED: A ? Duodenal bulb biopsy, B ? Antrum biopsy for histo and H. pylori, C ? Gastric body polyp biopsy, D ? Gastric cardia polyp biopsy MICROSCOPIC DIAGNOSIS A. Duodenal bulb, biopsy: Fragments of duodenal mucosa with nonspecific chronic inflammation, congestion and gastric metaplasia. B. Antrum, biopsy: Mild gastritis. See microscopic description and comment. C. Gastric body polyp, biopsy: Consistent with fundic gland polyp. D. Gastric cardia polyp, biopsy: Consistent with fundic gland polyp. SJ:julia 09/20/2022 COMMENT B. The results of immunohistochemistry for Helicobacter pylori will be reported separately ([id number]). MICROSCOPIC DESCRIPTION Slides are reviewed. B. The specimen shows fragments of gastric mucosa with chronic inflammatory cell infiltrates in the lamina propria consisting of lymphocytes and plasma cells, consistent with mild chronic gastritis. GROSS DESCRIPTION A - Received in fixative is one container labeled with the patient's name and designated duodenal bulb biopsy. The specimen consists of two irregular fragments of light foster soft tissue that in aggregate measure 0.6 x 0.3 x 0.1 cm. The specimen is totally submitted in one cassette. B - Received in fixative is one container labeled with the patient's name and designated antrum biopsy. The specimen consists of two irregular fragments of light foster soft tissue that in aggregate measure 0.6 x 0.3 x 0.1 cm. The specimen is totally submitted in one cassette. C - Received in fixative is one container labeled with the patient's name and designated gastric body polyp biopsy. The specimen consists of one irregular fragment of light foster soft tissue that measures 0.3 x 0.3 x 0.1 cm. The specimen is totally submitted in one cassette. D - Received in fixative is one container labeled with the patient's name and designated gastric cardia polyp biopsy. The specimen consists of one irregular fragment of light foster soft tissue that measures 0.3 x 0.3 x 0.1 cm. The specimen is totally submitted in one cassette. / SJ:rg 09/19/2022 TC:3 CPT: 24136 x4
[2022-09-19 13:15] VITALS: BP 128/70; BP 161/76; PULSE 75; RESP 14; TEMP 36.3; O2SAT 93
[2022-09-19 13:20] VITALS: BP 127/76; BP 161/76; PULSE 75; RESP 14; O2SAT 93
[2022-09-19 13:25] VITALS: BP 138/66; BP 161/76; PULSE 76; RESP 14; TEMP 36.6; O2SAT 94
--- NOTE | 2022-09-19 13:25 | OP.EGD_ITS ---
Patient Name: Jillian Vidal Procedure Date: 09/19/2022 1:11 PM Date of : 1935 Age: 86 Procedure: Upper GI endoscopy Indications: Acute post hemorrhagic anemia, Dysphagia, Heartburn, Esophageal reflux Providers: Valerio Toro MD Medicines: See the Anesthesia note for documentation of the administered medications Patient Profile: Refer to note in patient chart for documentation of history and physical. Patient has symptoms of chronic dysphagia, chronic heartburn and chronic regurgitation. Complications: No immediate complications. Estimated blood loss: Minimal. Procedure: Pre-Anesthesia Assessment: - The heart rate, respiratory rate, oxygen saturations, blood pressure, adequacy of pulmonary ventilation, and response to care were monitored throughout the procedure. After obtaining informed consent, the endoscope was passed under direct vision. Throughout the procedure, the patient's blood pressure, pulse, and oxygen saturations were monitored continuously. The Endoscope was introduced through the mouth, and advanced to the second part of duodenum. The upper GI endoscopy was accomplished without difficulty. The patient tolerated the procedure fairly well. Scope In: 12:45:22 PM Scope Out: 1:04:35 PM Total Procedure Duration Time 0 hours 19 minutes 13 seconds Findings: A few 5 mm semi-sessile polyps with no bleeding were found in the duodenal bulb. Biopsies were taken with a cold forceps for histology. Estimated blood loss was minimal. Localized moderate inflammation characterized by erythema was found in the gastric antrum. Biopsies were taken with a cold forceps for histology. Estimated blood loss was minimal. Multiple 5 mm semi-sessile polyps with no bleeding and no stigmata of recent bleeding were found in the cardia and in the gastric body. Biopsies were taken with a cold forceps for histology. Estimated blood loss was minimal. The Z-line was regular and was found 28 cm from the incisors. No biopsies or other specimens were collected for this exam. A large hiatal hernia was present. No biopsies or other specimens were collected for this exam. Impression: - A few duodenal polyps. Biopsied. - Gastritis. Biopsied. - Multiple gastric polyps. Biopsied. - Z-line regular, 28 cm from the incisors. No specimens collected. - Large hiatal hernia. No specimens collected. Recommendation: - Discharge patient to a skilled nursing (via wheelchair). - Resume previous diet today. - Use Prilosec (omeprazole) 40 mg PO daily today. - Await pathology results. - Telephone my office for pathology results in 1 week. - Continue present medications. Procedure Code(s): --- Professional --- 35980, Esophagogastroduodenoscopy, flexible, transoral; with biopsy, single or multiple Diagnosis Code(s): --- Professional --- K31.7, Polyp of stomach and duodenum K29.70, Gastritis, unspecified, without bleeding K44.9, Diaphragmatic hernia without obstruction or gangrene D62, Acute posthemorrhagic anemia R13.10, Dysphagia, unspecified R12, Heartburn K21.9, Gastro-esophageal reflux disease without esophagitis CPT copyright 2017 [employer]. All rights reserved. The codes documented in this report are preliminary and upon land mobile radio technician review may be revised to meet current compliance requirements. Valerio Toro MD 09/19/2022 1:25:19 PM This report has been signed electronically. Number of Addenda: 0 Note Initiated On: 09/19/2022 1:11 PM
--- NOTE | 2022-09-19 13:26 | OP.CCLET_ITS ---
09/19/2022 No Primary Care Physician Re : Upper GI endoscopy procedure for Jillian Vidal Dear Care Physician This procedure was performed on Monday, September 19, 2022. My impressions and recommendations are as follows: Impressions : - A few duodenal polyps. Biopsied. - Gastritis. Biopsied. - Multiple gastric polyps. Biopsied. - Z-line regular, 28 cm from the incisors. No specimens collected. - Large hiatal hernia. No specimens collected. Recommendations : - Discharge patient to a group home (via wheelchair). - Resume previous diet today. - Use Prilosec (omeprazole) 40 mg PO daily today. - Await pathology results. - Telephone my office for pathology results in 1 week. - Continue present medications. My findings are described in the full procedure note, which is enclosed. If I can be of further assistance, please feel free to contact me at Doctor phone number(s): , Work: . Sincerely, Valerio Toro MD 09/19/2022 1:25:19 PM This report has been signed electronically.
[2022-09-19 13:50] VITALS: BP 130/66; BP 161/76; PULSE 80; RESP 14; O2SAT 95
== END 2022-09-19 14:09 | disposition home or self-care (01) ==
LOC: EN 11:10 → AC 11:19
PROVIDERS: PCP Nurse Practitioner Adult Health; Referring Provider Nurse Practitioner Adult Health; Visit Provider Surgery
PROC: 0DJ08ZZ Inspection of Upper Intestinal Tract, Via Natural or Artificial Opening Endoscopic (ICD-10-PCS; CPT 43235; principal; 2022-09-19 12:25)
DX: K44.9 Diaphragmatic hernia without obstruction or gangrene (principal); K31.7 Polyp of stomach and duodenum; K29.70 Gastritis, unspecified, without bleeding; K21.9 Gastro-esophageal reflux disease without esophagitis; R13.10 Dysphagia, unspecified; D62 Acute posthemorrhagic anemia; R12 Heartburn
CPT/HCPCS: 43239; 88305; 88342; J7120; J2405

== ENCOUNTER → 2022-09-21 | Outpatient (REF) | payer MEDICARE, OTHER, SELFPAY ==
[2022-09-21 09:04] LABS: Absolute Lymphocyte Count 1.85 X10^3/uL (0.83-4.51); Absolute Neutrophil Count 3.4 X10^3/uL (2.0-7.7); Basophil# 0.04 X10^3/uL; Basophil% 0.6 % (0-1); Eosinophil# 0.21 X10^3/uL; Eosinophils% 3.4 % (0-5); Hemoglobin 10.6 g/dL (12.0-15.0); Lymphocyte # 1.85 X10^3/ul (0.83-4.51); Lymphocyte % 29.9 % (19-41); Mean Corp Hgb Conc 31.2 g/dL (32-36); Mean Corpuscular Volume 93.2 fL (81-99); Mean Platelet Vol. 10.6 fl (6.2-12.0); Monocyte# 0.68 X10^3/uL; NRBC Flagged by Analyzer 0 % (0-5); Neutrophil # 3.39 X10^3/uL (2.7-7.7); Neutrophil % 54.9 % (47-70); Platelet Count 271 K/mm3 (150-450); RBC Distribution Width CV 15.1 % (11.6-14.6); RBC Distribution Width SD 51.3 fl (35.1-43.9); Red Blood Count 3.65 M/mm3 (4.2-5.4); White Blood Count 6.2 K/mm3 (4.4-11.0)
== END ==
LOC: OLS.WHLTSB 05:00
PROVIDERS: PCP Nurse Practitioner Adult Health; Visit Provider Internal Medicine
DX: D64.9 Anemia, unspecified (principal); E55.9 Vitamin D deficiency, unspecified; H04.129 Dry eye syndrome of unspecified lacrimal gland; S72.001A Fracture of unspecified part of neck of right femur, initial encounter for closed fracture
CPT/HCPCS: 36415; 85025

== ENCOUNTER → 2022-09-29 | Outpatient (CLI) | payer MEDICARE, OTHER, SELFPAY ==
--- NOTE | 2022-09-29 13:25 | MRI_ITS ---
STUDY: MRI LUMBAR SPINE WITHOUT CONTRAST REASON FOR EXAM: Female, 86 years old patient with low back pain and weakness. TECHNIQUE: Standardized fat and water weighted pulse sequences were obtained in the sagittal and axial planes. COMPARISON: None FINDINGS: There is severe compression fracture of T10 with the greater than 80% diameter narrowing. T12-L1: Normal endplates. Normal disc height, signal and morphology. Normal bilateral facet joints. Normal central canal and bilateral lateral recesses. Normal bilateral intervertebral neural foramina. Normal lumbar lordosis. There is a scoliosis of the thoracal lumbar spine with convexity toward the left. Estimated amount of curvature is 27.5 degrees. Normal conus medullaris that terminates at the L1-2: There is severe narrowing of the L1-2 disc. There is vacuum disc phenomena. There is mild annular disk bulge and osteophyte complex. There is mild degenerative arthropathy of the facet joints. Bilateral neuroforamina are narrowed without MR evidence for nerve impingement. There is no appreciable acquired central canal stenosis. L2-3: There is a compression of the superior endplate of L3 with abnormal signal suggesting this could represent an acute fracture. Maximum and compression of this vertebral body is approximately 40%. There is a broad central disc protrusion. There is an annular disc bulge and osteophyte complex. There is moderate degenerative arthropathy of the facet joints. Neural foramina are severely narrowed with a definite nerve impingement. There is potential impingement of the L3 nerve roots of the lateral recesses. L3-4: There is narrowing of the disc. There is mild annular disk bulge and osteophyte complex. There is mild degenerative arthropathy of the facet joints. Bilateral neuroforamina are moderately narrowed without MR evidence for nerve impingement. There is moderate acquired central canal stenosis. L4-5: There is a moderately large focal right central disc protrusion. There is moderately severe central canal stenosis with potential impingement cauda equina. Neuroforamina are moderately narrowed without evidence of neural impingement. There is mild degenerative arthropathy of facet joints. L5-S1: There is mild annular disk bulge and osteophyte complex. There is moderately severe degenerative arthropathy of the facet joints. Bilateral neuroforamina are narrowed without MR evidence for nerve impingement. There is no appreciable acquired central canal stenosis. Normal visualized sacral ala. There is moderate paraspinal muscular atrophy. MRI/Spine Lumbar (Routine) IMPRESSION: 1. Mild thoracolumbar scoliosis. 2. Acute compression fracture of superior endplate of L3. 3. Old compression fracture of T10. 4. 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 Electronically Signed: Alicia Ruff MD at 5:48 EST ,
== END | disposition home or self-care (01) ==
LOC: MRI 12:59
PROVIDERS: PCP Nurse Practitioner Adult Health; Referring Provider Student in an Organized Health Care Education/Training Program; Visit Provider Student in an Organized Health Care Education/Training Program
DX: M54.59 Other low back pain (principal); R53.1 Weakness
CPT/HCPCS: 72148

== ENCOUNTER → 2022-10-05 | Outpatient (REF) | payer MEDICARE, OTHER, SELFPAY ==
[2022-10-05 08:20] LABS: Absolute Lymphocyte Count 1.59 X10^3/uL (0.83-4.51); Absolute Neutrophil Count 4.5 X10^3/uL (2.0-7.7); Basophil# 0.04 X10^3/uL; Basophil% 0.6 % (0-1); Eosinophil# 0.16 X10^3/uL; Eosinophils% 2.3 % (0-5); Hematocrit 38.1 % (37-47); Hemoglobin 11.9 g/dL (12.0-15.0); Lymphocyte # 1.59 X10^3/ul (0.83-4.51); Lymphocyte % 22.7 % (19-41); Mean Corp Hgb Conc 31.2 g/dL (32-36); Mean Corpuscular Hgb 28.9 pg (27.0-32.0); Mean Corpuscular Volume 92.5 fL (81-99); Mean Platelet Vol. 10.8 fl (6.2-12.0); Monocyte# 0.65 X10^3/uL; Monocyte% 9.3 % (0-10); NRBC Flagged by Analyzer 0 % (0-5); Neutrophil # 4.52 X10^3/uL (2.7-7.7); Neutrophil % 64.7 % (47-70); Platelet Count 307 K/mm3 (150-450); RBC Distribution Width CV 14.6 % (11.6-14.6); RBC Distribution Width SD 50.2 fl (35.1-43.9); Red Blood Count 4.12 M/mm3 (4.2-5.4)
[2022-10-05 09:04] LABS: Anion Gap 6 (5-15); BUN 16 mg/dL (7-18); BUN/Creat Ratio 23.2 RATIO (10-20); Calcium,Total 9.4 mg/dL (8.5-10.1); Chloride 106 mmol/L (98-107); Creatinine, Serum 0.69 mg/dL (0.55-1.02); EST Glomerular Filtration Rate 86 mL/min (>60); Est Glom Filt Rate - Afr Amer 104 mL/min (>60); Glucose 76 mg/dL (74-106); Sodium Level 142 mmol/L (136-145)
== END ==
LOC: OLS.WHLTSB 05:00
PROVIDERS: PCP Nurse Practitioner Adult Health; Visit Provider Internal Medicine
DX: I10 Essential (primary) hypertension (principal); N39.0 Urinary tract infection, site not specified; S72.001A Fracture of unspecified part of neck of right femur, initial encounter for closed fracture; E55.9 Vitamin D deficiency, unspecified; S72.002D Fracture of unspecified part of neck of left femur, subsequent encounter for closed fracture with routine healing
CPT/HCPCS: 36415; 80048; 85025